=== PATIENT | female | born 1995 | race Two or more races ===

== ENCOUNTER 2024-04-06 20:00 | Inpatient (IN) | payer OTHER ==
[~2024-04-06] VITALS: Ht 157.5 cm; Wt 78.1 kg
--- NOTE | 2024-04-06 20:15 | ED.PDOC ---
HPI Comments 28-year-old female who came to ER for chest pains. Patient states she has been experiencing left sided chest pain since 12 noon today. Chest pains for aching, intermittent, associated with nausea and shortness of breath. As of 3:00 p.m., noted worsening of chest pains, radiating towards her left arm, felt like her arm was numb. Patient admits that she has stress recently. Chief Complaint: Chest pain Time Seen by MD: 20:15 Reviewed Notes: Nurses Notes Allergies: Coded Allergies: Shellfish Allergy (Verified Allergy, Unknown, 04/06/24) Information Source: Patient Mode of Arrival: Ambulatory Severity: Moderate Timing: Hours Duration: Since onset Prehospital treatment: None Location: Chest (L) Radiation: Arm (L) Quality: Aching Onset: At Rest Cardiac Risk Factors: None PE Risk Factors: None History of: None Associated Signs and Symptoms: SOB Past Medical History PAST MEDICAL HISTORY: Asthma Surgical History: Appendectomy Surgical History (Other): Resection of left breast mass 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 Family History Family History: Reviewed,noncontributory to illness Social History Smoker: Non-Smoker Alcohol: Denies ETOH Use Drugs: Denies Drug Use Lives In: Home Constitutional: denies: chills, diaphoresis, fatigue, fever, malaise, sweats, weakness, others EENTM: denies: blurred vision, double vision, ear bleeding, ear discharge, ear drainage, ear pain, ear ringing, eye pain, eye redness, hearing loss, mouth pain, mouth swelling, nasal discharge, nose bleeding, nose congestion, nose pain, photophobia, tearing, throat pain, throat swelling, voice changes, others Respiratory: reports: SOB at rest; denies: cough, hemoptysis, orthopnea, shortness of breath, SOB with excertion, stridor, wheezing, others Cardiovascular: reports: chest pain, left arm pain; denies: dizzy spells, diaphoresis, Dyspnea on exertion, edema, irregular heart beat, lightheadedness, palpitations, PND, syncope, others Gastrointestinal: reports: nausea; denies: abdomen distended, abdominal pain, blood streaked bowels, constipated, diarrhea, dysphagia, difficulty swallowing, hematemesis, melena, poor appetite, poor fluid intake, rectal bleeding, rectal pain, vomiting, others Genitourinary: denies: abnormal vagina bleeding, burning, dyspareunia, dysuria, flank pain, frequency, hematuria, incontinence, pain, , vagina discharge, urgency, others Neurological: denies: dizziness, fainting, headache, left sided numbness, left sided weakness, numbness, paresthesia, pre-existing deficit, right sided numbness, right sided weakness, seizure, speech problems, tingling, tremors, weakness, others Musculoskeletal: denies: back pain, gout, joint pain, joint swelling, muscle pain, muscle stiffness, neck pain, others Integumetry: denies: bruises, change in color, change in hair/nails, dryness, laceration, lesions, lumps, rash, wounds, others Allergic/Immunocompromised: denies: Difficulty Healing, Frequent Infections, Hives, Itching, others Hematologic/Lymphatic: denies: anemia, blood clots, easy bleeding, easy bruising, swollen glands, others Endocrine: denies: excessive hunger, excessive sweating, excessive thirst, excessive urination, flushing, intolerance to cold, intolerance to heat, unexplained weight gain, unexplained weight loss, others Psychiatric: denies: anxiety, bipolar disorder, depression, hopeless, panic disorder, schizophrenia, sleepless, suicidal, others Physical Exam General Appearance: No Apparent Distress, Normal HEENT: Normal ENT Inspection, Pharynx Normal, TMs Normal Neck: Full Range of Motion, Non-Tender, Normal, Normal Inspection Respiratory: Chest Non-Tender, Lungs Clear, No Accessory Muscle Use, No Respiratory Distress, Normal Breath Sounds Cardiovascular: No Edema, No JVD, No Murmur, No Gallop, Normal Peripheral Pulses, Regular Rate/Rhythm Breast Exam: Deferred Gastrointestinal: No Organomegaly, Non Tender, No Pulsatile Mass, Normal Bowel Sounds, Soft Genitalia: Deferred Pelvic: Deferred Rectal: Deferred Extremities: No calf tenderness, Normal capillary refill, Normal inspection, Normal range of motion, Non-tender, No pedal edema Musculoskeletal : Apperance: Normal Neurologic: Alert, charge coordinator II-XII nml as Tested, No Motor Deficits, Normal Affect, Normal Mood, No Sensory Deficits Cerebellar Function: Normal Reflexes: Normal Skin: Dry, Normal Color, Warm Lymphatic: No Adenopathy Was a procedure done? Was a procedure done?: No CP Differential Dx Differential Diagnosis: Angina, Anxiety / Panic Attack, Hyperventilation Differential Diagnosis: Angina, Chest Wall Pain, Costochondritis, Esophageal reflux/spasm, Gastritis, Myocardial Infarction X-Ray, Labs, Meds, VS Vital Signs Date Time Temp Pulse Resp B/P (MAP) Pulse Ox O2 Delivery O2 Flow Rate FiO2 04/06/24 21:03 80 18 97 Room Air* 0 21 04/06/24 21:03 98.7 80 18 131/78 (95) 97 98.7 04/06/24 20:08 98.7 80 18 131/78 (95) 97 04/06/24 20:06 93 Lab Test 04/06/24 21:12 04/06/24 20:10 04/06/24 20:09 04/06/24 20:07 Range/Units Troponin I High Sensitivity 3 L < 3 L </=34 ng/L White Blood Count 6.8 4.4-10.8 10^3/uL Red Blood Count 4.18 4.0-5.20 10^6/uL Hemoglobin 14.2 12.2-16.2 g/dL Hematocrit 39.9 36.0-46.0 % Mean Corpuscular Volume 95.4 80.0-100.0 fL Mean Corpuscular Hemoglobin 33.9 H 28.0-32.0 pg Mean Corpuscular Hemoglobin Concent 35.5 32.0-36.0 g/dL Red Cell Distribution Width 13.3 11.8-14.3 % Platelet Count 311 140-450 10^3/uL Mean Platelet Volume 7.3 6.9-10.8 fL Neutrophils (%) (Auto) 70.1 37.0-80.0 % Lymphocytes (%) (Auto) 24.6 10.0-50.0 % Monocytes (%) (Auto) 4.4 0.0-12.0 % Eosinophils (%) (Auto) 0.3 0.0-7.0 % Basophils (%) (Auto) 0.6 0.0-2.0 % Neutrophils # (Auto) 4.8 1.6-8.6 10 ^3/uL Lymphocytes # (Auto) 1.7 0.4-5.4 10 ^3/uL Monocytes # (Auto) 0.3 0-1.3 10 ^3/uL Eosinophils # (Auto) 0 0-0.8 10 ^3/uL Basophils # (Auto) 0 0-0.2 10 ^3/uL Nucleated Red Blood Cells 0.1 % Sodium Level 140 136-145 mmol/L Potassium Level 3.3 L 3.5-5.1 mmol/L Chloride Level 106 98-107 mmol/L Carbon Dioxide Level 21 20-31 mmol/L Anion Gap 13 5-15 Blood Urea Nitrogen 16 9-23 mg/dL Creatinine 0.84 0.550-1.02 mg/dL Glomerular Filtration Rate Calc 98 >90 mL/min BUN/Creatinine Ratio 19.0 10.0-20.0 Serum Glucose 87 74-106 mg/dL Calcium Level 10.4 8.7-10.4 mg/dL Urine Test Negative Negative Urine Color Yellow Yellow Urine Clarity Clear Clear Urine pH 5.0 5.0-9.0 Urine Specific [place] 1.029 1.001-1.035 Urine Protein Negative Negative Urine Ketones 3+ H Negative Urine Blood Trace H Negative /uL Urine Nitrite Negative Negative Urine Bilirubin Negative Negative Urine Urobilinogen Normal Negative mg/dL Urine Leukocyte Esterase Negative Negative /uL Urine RBC 2 0 - 4 /hpf Urine WBC 2 0 - 5 /hpf Urine Squamous Epithelial Cells Few <5 /hpf Urine Bacteria Few H None Seen /hpf Urine Mucus Few None Seen Urine Glucose Normal Normal mg/dL Current Medications Medications (Trade) Dose Ordered Sig/Bernadette Route Start Time Stop Time Status Last Admin Ondansetron HCl (Zofran Po) 4 mg ONCE ONCE PO 04/06/24 21:30 04/06/24 21:31 DC 04/06/24 21:31 Ketorolac Tromethamine (Toradol Injection) 30 mg ONCE ONCE IV 04/06/24 22:00 04/06/24 22:01 DC 04/06/24 22:04 Ondansetron HCl (Zofran) 4 mg ONCE ONCE IV 04/06/24 22:00 04/06/24 22:01 DC 04/06/24 22:05 Sodium Chloride 1,000 ml @ 1,000 mls/hr Q1H ONCE IV 04/06/24 22:00 04/06/24 22:59 04/06/24 22:05 Time of 1ST Reevaluation: 20:11 Reevaluation 1ST: Unchanged Patient Education/Counseling: Diagnosis, Treatment Family Education/Counseling: No Family Present Departure 1 Departure Time of Disposition: 22:46 (Patient presented with chest pain that was concerning for possible STEMI, ACS, PE, Pneumonia, Muscle Strain, COPD, Disse ction. Data: 1. I ordered and reviewed the result of at least 3 labs including a CBC, BMP, and Troponin. 2. I independently interpreted the following tests: EKG which shows normal sinus rhythm and Chest X-ray which shows benign chest.Risk:This patient has a high risk of morbidity due to further diagnostic testing or treatment and may suffer from an acute cardiac or respiratory diso rder. Workup reveals intractable chest pain and concern for ACS and patient should be admitted for further workup and possible expert consultation. ) Impression: Primary Impression: Acute chest pain Additional Impression: Nausea and vomiting Qualified Codes: R11.12 - Projectile vomiting Disposition: ADMITTED INPATIENT Admit to: Med Surg Condition: Serious Critical Care Note Critical Care Time?: Yes Critical care comment: Acute chest pain Authorized and Performed by: Benja Whitney MD Total critical care time: Approximately 31 minutes Due to a high probability of clinically significant, life threatening deterioration, the patient required my highest level of preparedness to intervene emergently and I personally spent this critical care time directly and personally managing the patient. This critical care time included obtaining a history; examining the patient; pulse oximetry; ordering and review of studies; arranging urgent treatment with development of a management plan; evaluation of patient's response to treatment; frequent reassessment; and, discussions with other providers. This critical care time was performed to assess and manage the high probability of imminent, life-threatening deterioration that could result in multi-organ failure. It was exclusive of separately billable procedures and treating other patients and teaching time. Please see my other sections and the rest of the note for further information on patient assessment and treatment. Stability Stability form required: No Heart Score Heart Score: Heart Score Response (Comments) Value History Slightly Suspicious 0 EKG Normal 0 Age <45 0 Risk Factors No known risk factors 0 Troponin Normal limit 0 Total 0 I personally scribed for BENJA WHITNEY MD ([email or web address]) on 04/06/24 at 20:15. Electronically submitted by Alvin Lutz ([email or web address]). BENJA WHITNEY MD Apr 06, 2024 20:15
[2024-04-06 20:26] LABS: Basophils # (auto) 0 10 ^3/uL (0-0.2); Basophils % (auto) 0.6 % (0.0-2.0); Eosinophils # (auto) 0 10 ^3/uL (0-0.8); Eosinophils % (auto) 0.3 % (0.0-7.0); Hematocrit 39.9 % (36.0-46.0); Hemoglobin 14.2 g/dL (12.2-16.2); Lymphocytes # (auto) 1.7 10 ^3/uL (0.4-5.4); Lymphocytes % (auto) 24.6 % (10.0-50.0); Mean Corpuscular Hemoglobin 33.9 pg (28.0-32.0); Mean Corpuscular Hgb Conc. 35.5 g/dL (32.0-36.0); Mean Corpuscular Volume 95.4 fL (80.0-100.0); Monocytes # (auto) 0.3 10 ^3/uL (0-1.3); Monocytes % (auto) 4.4 % (0.0-12.0); Neutrophils # (auto) 4.8 10 ^3/uL (1.6-8.6); Neutrophils % (auto) 70.1 % (37.0-80.0); Nucleated Red Blood Cells % 0.1 %; Platelet Count (auto) 311 10^3/uL (140-450); Red Blood Cells 4.18 10^6/uL (4.0-5.20); Red Cell Distribution Width 13.3 % (11.8-14.3); White Blood Cell 6.8 10^3/uL (4.4-10.8)
[2024-04-06 21:03] VITALS: PULSE 80; RESP 18; O2SAT 97
[2024-04-06 21:26] LABS: Urine Bacteria FEW /hpf (None Seen); Urine Blood TRACE /uL (Negative); Urine Clarity Clear (Clear); Urine Color Yellow (Yellow); Urine Mucus FEW (None Seen); Urine Protein, UAD Negative (Negative); Urine Specific Gravity 1.029 (1.001-1.035); Urine Urobilinogen Normal (Negative); Urine WBC 2 /hpf (0 - 5)
[2024-04-06] MEDS: ONDANSETRON ODT 4 MG TAB PO ONE (21:31)
[2024-04-06 21:42] LABS: Chloride 106 mmol/L (98-107); Sodium 140 mmol/L (136-145)
[2024-04-06 21:43] LABS: Anion Gap 13 (5-15); Calcium 10.4 mg/dL (8.7-10.4); Carbon Dioxide 21 mmol/L (20-31)
[2024-04-06 21:48] LABS: Blood Urea Nitrogen 16 mg/dL (9-23); Glucose 87 mg/dL (74-106)
[2024-04-06 21:49] LABS: Potassium 3.3 mmol/L (3.5-5.1)
--- NOTE | 2024-04-06 21:56 | DVH ---
EXAM: XY CHEST TWO VIEWS ROUTINE TECHNIQUE: Two radiographic views of the chest CLINICAL HISTORY: chest pain COMPARISON: None Findings/Impression: Frontal and lateral chest radiographs demonstrate no acute osseous or superficial soft tissue abnorma lities. The trachea is midline. The cardiac silhouette and mediastinum are within normal limits. No pneumothorax, pleural effusions, or consolidations.
[2024-04-06] MEDS: KETOROLAC TROMETH 30 MG/ML 1ML VIAL IV ONE (22:04)
[2024-04-06] MEDS: SODIUM CHLORIDE 0.9% 1,000 ML IV ONE (22:05)
[2024-04-06] MEDS: ONDANSETRON HCL 4 MG/2 ML VIAL IV ONE (22:05)
[2024-04-06] MEDS ORDERED: MORPHINE SULFATE INJ 2 MG/ml SYRG IV PRN ×2 (23:00)
[2024-04-06] MEDS ORDERED: NITROGLYCERIN 0.4 MG SL TAB SL PRN (23:00)
[2024-04-06] MEDS ORDERED: DOCUSATE SOD 100 MG CAP PO PRN (23:00)
[2024-04-06] MEDS: POTASSIUM CHL 20 Meq TABLET PO ONE (23:35)
[2024-04-07] VITALS (8 sets, daily range): BP systolic 95–120; BP diastolic 40–60; PULSE 63–86; RESP 15–19; TEMP 97.8–98.5; O2SAT 97–99
--- NOTE | 2024-04-07 00:35 | DVHHPRES ---
History of Present Illness Resident Creating Document: JESUS CAMPBELL RESIDENT History of Present Illness Patient is a 28 years old female with past medical history of asthma came with a complaint of chest pain. As per patient chest pain started around noon, central in nature, pressure-like, 8/10 in severity, radiating to the left arm, the left arm feeling of numbness, pain increased with breathing and walking, Decreased with rest. Also reported associated shortness of breath and palpitation associated with chest pain. Patient reported that she feels sharp pain when breathing in. Patient also endorsed some headache pressure-like, 9/10, no aggravating or relieving factor. Denied any cough, fever, diarrhea, abdominal pain, constipation, acute joint pain or swelling, dysarthria, change in vision. Lab workup revealed hypokalemia potassium 3.3 other lab workup including troponin I was nonsignificant. EKG revealed normal sinus rhythm, ST elevation. D-dimer 0.19. Past Medical History Asthma, migraine Family History Father had NC, Past Social History Patient denies smoking/alcoholism/drug abuse, lives at home with mom Review of Systems Review of Systems Allergy-shellfish Patient was seen today at the bedside. Respiratory- denies cough or or wheezing Gastrointestinal- denies any rectal bleeding, nausea or vomiting Musculoskeletal-denies acute joint swelling or tenderness or redness Neurological- denies acute dysarthria, dysphagia, change in vision Psychiatry- denies depression or SI or HI Skin- denies acute rash or purpura Allergies: Coded Allergies: Shellfish Allergy (Verified Allergy, Unknown, 04/06/24) Medications Current Medications Medications Dose Ordered Sig/Bernadette Route Start Time Stop Time Status Last Admin Dose Admin Docusate Sodium 100 mg BIDPRN PRN PO 04/06/24 23:00 Acetaminophen 650 mg Q6HP PRN PO 04/06/24 23:00 Morphine Sulfate 2 mg Q4HPRN PRN IV 04/06/24 23:00 Nitroglycerin 0.4 mg Q5MINP PRN SL 04/06/24 23:00 Morphine Sulfate 2 mg Q30M PRN IV 04/06/24 23:00 Exam Vital Signs Vital Signs Date Time Temp Pulse Resp B/P (MAP) Pulse Ox O2 Delivery O2 Flow Rate FiO2 04/06/24 23:26 73 04/06/24 21:03 18 97 Room Air* 0 21 04/06/24 21:03 98.7 131/78 (95) 98.7 Exam General examination- awake, alert, oriented, conversant HEENT- PEERLA, no acute nasal discharge Cardiovascular- S1-S2 audible, rate and rhythm regular, no murmur Respiratory- CTAB, no wheeze or rhonchi Gastrointestinal-nontender, bowel sound+. Nondistended Musculoskeletal-no acute joint swelling or tenderness or redness# Lower extremity- no leg edema Neurological- cranial nerves intact, no acute dysarthria or dysphagia Psychiatry- denies depression or SI or HI Skin- no acute rash or purpura Labs/Xrays Labs Test 04/07/24 00:09 04/06/24 22:56 04/06/24 20:10 04/06/24 20:09 Range/Units D-Dimer, Quantitative < 0.19 0.0-0.49 mg/L FEU Troponin I High Sensitivity < 3 L </=34 ng/L Thyroid Stimulating Hormone (TSH) 0.44 L 0.55-4.78 uIU/mL White Blood Count 6.8 4.4-10.8 10^3/uL Red Blood Count 4.18 4.0-5.20 10^6/uL Hemoglobin 14.2 12.2-16.2 g/dL Hematocrit 39.9 36.0-46.0 % Mean Corpuscular Volume 95.4 80.0-100.0 fL Mean Corpuscular Hemoglobin 33.9 H 28.0-32.0 pg Mean Corpuscular Hemoglobin Concent 35.5 32.0-36.0 g/dL Red Cell Distribution Width 13.3 11.8-14.3 % Platelet Count 311 140-450 10^3/uL Mean Platelet Volume 7.3 6.9-10.8 fL Neutrophils (%) (Auto) 70.1 37.0-80.0 % Lymphocytes (%) (Auto) 24.6 10.0-50.0 % Monocytes (%) (Auto) 4.4 0.0-12.0 % Eosinophils (%) (Auto) 0.3 0.0-7.0 % Basophils (%) (Auto) 0.6 0.0-2.0 % Neutrophils # (Auto) 4.8 1.6-8.6 10 ^3/uL Lymphocytes # (Auto) 1.7 0.4-5.4 10 ^3/uL Monocytes # (Auto) 0.3 0-1.3 10 ^3/uL Eosinophils # (Auto) 0 0-0.8 10 ^3/uL Basophils # (Auto) 0 0-0.2 10 ^3/uL Nucleated Red Blood Cells 0.1 % Urine Test Negative Negative Test 04/06/24 20:07 Range/Units Urine Color Yellow Yellow Urine Clarity Clear Clear Urine pH 5.0 5.0-9.0 Urine Specific [place] 1.029 1.001-1.035 Urine Protein Negative Negative Urine Ketones 3+ H Negative Urine Blood Trace H Negative /uL Urine Nitrite Negative Negative Urine Bilirubin Negative Negative Urine Urobilinogen Normal Negative mg/dL Urine Leukocyte Esterase Negative Negative /uL Urine RBC 2 0 - 4 /hpf Urine WBC 2 0 - 5 /hpf Urine Squamous Epithelial Cells Few <5 /hpf Urine Bacteria Few H None Seen /hpf Urine Mucus Few None Seen Urine Glucose Normal Normal mg/dL Assessment/Plan Assessment/Plan #Acute chest pain likely due to pericarditis/musculoskeletal -rule out ACS -EKG- sinus rhythm, no ST elevation -Troponin I nonsignificant -pending echo 2D -continue aspirin 81 mg daily # suspected pericarditis/Musculoskeletal -EKG with a sinus rhythm, no ST elevation -Troponin I nonsignificant -pending echo 2D # hypokalemia -potassium 3.3 -replenished #Bronchial asthma -no acute exacerbation -follow up outpatient Goals of care/advance care planning; FULL CODE; discussed with the patient >15 minutes PUD prophylaxis: DVT prophylaxis: Patient ambulating Plan discussed with Dr. Cazares, nursing staff, patient Total time spent on patient evaluation, chart review, assessment and plan, discussion discussion >30 minutes Plan discussed with: Patient Plan discussed with: Patient, Other (RN) My Orders Orders - JESUS CAMPBELL RESIDENT Procedure Category Date Status Time Admit ADMIT 04/06/24 Transmitted 22:55 Code Status CODE 04/06/24 Transmitted 22:55 Docusate Sodium PHA 04/06/24 In Process Capsule (Colace 23:00 Complete Blood Count LAB 04/07/24 Logged 04:00 Comprehensive LAB 04/07/24 Logged Metabolic Panel 04:00 Cardiac DIET 04/07/24 Transmitted Diet-2gna,Lofat,Lochol Breakfast Echo 2d Mode Cardiac US 04/06/24 Logged DOP 22:55 Acetaminophen Tablet PHA 04/06/24 In Process (Tylenol Tablet) 23:00 Morphine Sulfate PHA 04/06/24 In Process Injection 23:00 Nitroglycerin PHA 04/06/24 In Process Sublingual (Ntrostat 23:00 Morphine Sulfate PHA 04/06/24 In Process Injection 23:00 Oxygen By Nasal RT 04/06/24 Transmitted Cannula 22:55 Stat Ekg For Chest YORDY 04/06/24 In Process Pain 22:55 Notify Md Of Changes YORDY 04/06/24 In Process From Base 22:55 Glaze Sprayer For [facility] 04/06/24 In Process 24 Hours 22:55 Emergency Dysrhythmia [facility] 04/06/24 In Process Protocol 22:55 Rhythm Strips Once YORDY 04/06/24 In Process Every Shift 22:55 Magnesium LAB 04/06/24 In Process 23:06 Comprehensive LAB 04/06/24 In Process Metabolic Panel 23:06 Date of Service: Apr 06, 2024 Billing Provider: ISAEL CAZARES MD Common Visit Codes: [id number] INP/OBS CARE (HIGH) JESUS CAMPBELL RESIDENT Apr 07, 2024 00:35 ISAEL CAZARES MD Apr 09, 2024 12:08
[2024-04-07] MEDS: ASPirin 81 mg TAB PO ONE (01:10)
[2024-04-07 01:18] LABS: Alanine Aminotransferase 25 U/L (7-40); Albumin 4.8 g/dL (3.2-4.8); Alkaline Phosphatase 68 U/L (46-116); Anion Gap 11 (5-15); Aspartate Aminotransferase 15 U/L (13-40); BUN/Creatinine Ratio 21.1 (10.0-20.0); Blood Urea Nitrogen 15 mg/dL (9-23); Carbon Dioxide 21 mmol/L (20-31); Chloride 107 mmol/L (98-107); Glucose 78 mg/dL (74-106); Magnesium 2.2 mg/dL (1.6-2.6); Potassium 4.1 mmol/L (3.5-5.1); Sodium 139 mmol/L (136-145)
[2024-04-07 01:19] LABS: Bilirubin, Total 1.1 mg/dL (0.2-1.0); Total Protein 7.2 g/dL (5.7-8.2)
[2024-04-07] MEDS ORDERED: LORazepam 0.5 MG TAB PO PRN (04:00)
[2024-04-07 04:30] LABS: Amphetamine Screen, Urine Neg (NEGATIVE); Barbiturate Scree,Urine Neg (NEGATIVE); Benzodiazephine Screen, Urine Neg (NEGATIVE); Cocaine Screen, Urine Neg (NEGATIVE); Opiate Scree,Urine Neg (NEGATIVE)
[2024-04-07 04:31] LABS: Cannabinoid Screen, Urine Neg (NEGATIVE); Phencyclidine Screen, Urine Neg (NEGATIVE)
[2024-04-07] MEDS: PANTOPRAZOLE 40 MG TAB PO SCH (07:00)
[2024-04-07 07:30] LABS: Basophils # (auto) 0 10 ^3/uL (0-0.2); Basophils % (auto) 0.5 % (0.0-2.0); Eosinophils # (auto) 0.1 10 ^3/uL (0-0.8); Lymphocytes # (auto) 1.5 10 ^3/uL (0.4-5.4); Monocytes # (auto) 0.3 10 ^3/uL (0-1.3)
[2024-04-07 07:32] LABS: Eosinophils % (auto) 1.4 % (0.0-7.0); Hemoglobin 12.8 g/dL (12.2-16.2); Lymphocytes % (auto) 35.7 % (10.0-50.0); Mean Corpuscular Hemoglobin 34.4 pg (28.0-32.0); Mean Corpuscular Hgb Conc. 35.5 g/dL (32.0-36.0); Mean Corpuscular Volume 96.8 fL (80.0-100.0); Monocytes % (auto) 6.3 % (0.0-12.0); Neutrophils # (auto) 2.4 10 ^3/uL (1.6-8.6); Neutrophils % (auto) 56.1 % (37.0-80.0); Nucleated Red Blood Cells % 0.1 %; Platelet Count (auto) 277 10^3/uL (140-450); Red Blood Cells 3.72 10^6/uL (4.0-5.20); Red Cell Distribution Width 13.5 % (11.8-14.3); White Blood Cell 4.3 10^3/uL (4.4-10.8)
[2024-04-07 07:38] LABS: Alanine Aminotransferase 23 U/L (7-40); Albumin 4.4 g/dL (3.2-4.8); Alkaline Phosphatase 63 U/L (46-116); Anion Gap 9 (5-15); BUN/Creatinine Ratio 17.9 (10.0-20.0); Bilirubin, Total 0.7 mg/dL (0.2-1.0); Blood Urea Nitrogen 14 mg/dL (9-23); Calcium 9.7 mg/dL (8.7-10.4); Carbon Dioxide 23 mmol/L (20-31); Chloride 110 mmol/L (98-107); Free T3 3.41 pg/mL (2.3-4.2); Free T4 (Free Thyroxine) 1.16 ng/dL (0.89-1.76); Glucose 82 mg/dL (74-106); Potassium 3.9 mmol/L (3.5-5.1); Sodium 142 mmol/L (136-145); Total Protein 6.7 g/dL (5.7-8.2)
[2024-04-07 07:39] LABS: Aspartate Aminotransferase 11 U/L (13-40)
[2024-04-07 09:39] LABS: Erythrocyte Sedimentation Rate 22 mm/hr (0-20)
[2024-04-07 12:49] LABS: COVID19 ANTIGEN SOFIA FIA NEGATIVE (NEGATIVE)
[2024-04-07 12:57] LABS: Rapid Influenza A Negative (Negative); Rapid Influenza B Negative (Negative)
[2024-04-07] MEDS: ACETAMINOPHEN 325 MG TAB PO PRN (19:54)
--- NOTE | 2024-04-07 20:38 | DVHPNRES ---
Progress Note Date Seen: Apr 07, 2024 Resident Creating Document: ROSAMARIA FLORES RESIDENT Medical Necessity Reason Pt with a Central, PICC or Fol: No Medical Necessity Reason chest pain family history of AMI at age 35 Subjective Review of Systems This a 28-year-old female with a past medical history significant for asthma presented to the ED with a complaints of chest pain. According to the patient, the chest pain started around noon yesterday. Pain was localized substernally and felt like pressures being applied and rated 8/10 with radiation to the left arm. it was associated with numbness, shortness of breath and palpitation. The pain increased with breathing and walking, but improved with rest. Patient also complained of headache that felt like pressure in her head or sometimes felt like a tight band around her head. She denied any cough, fever, diarrhea, abdominal pain, constipation, acute joint pain or swelling, dysarthria, change in vision. Initials vitals were grossly unremarkable and lab workup showed K: 3.3, troponin < 3 ( 3x). EKG revealed normal sinus rhythm, and no ST elevation. D-dimer 0.19. Covid: Negative Constitutional: Denies fever no chills no feeling of malaise HEENT: Headache localized in her scalp; ear pain, ear discharges, conjunctivitis, nasal discharge throat pain Cardiovascular: Improved chest pain 4/10; no palpitation, orthopnea, PND, or pedal edema Respiratory: Denies shortness of breath, cough cough, sputum production, hemoptysis, GI: Denies abdominal pain, nausea, vomiting, diarrhea, hematemesis, hematochezia, : Denies frequency, urgency, hematuria, Endocrine: Denies unintentional weight gain or weight loss, feeling of hot flashes, Chuck: Denies easy bruising, bleeding disorders, epistaxis Musculoskeletal: Denies joint pains, muscle aches Psych: No evidence of depression, ruth, suicidal ideation Past Medical History: Asthma, migraine Family History: Father had AL ( 2X) at age 35 and had a stent Past Social History: in divorce proceedings currently, no alcoholism/drug abuse, lives at home with mom Objective vital signs Vital Sign Date Time Temp Pulse Resp B/P (MAP) Pulse Ox O2 Delivery O2 Flow Rate FiO2 04/07/24 17:00 98.5 79 19 120/57 (78) 98 98.5 04/07/24 16:33 Room Air* 0 21 Total Intake and Output 04/06/24 04/06/24 04/07/24 15:00 23:00 07:00 Intake Total 1000 ml Balance 1000 ml medications Current Medications Medications Dose Ordered Sig/Bernadette Route Start Time Stop Time Status Last Admin Dose Admin Docusate Sodium 100 mg BIDPRN PRN PO 04/06/24 23:00 Acetaminophen 650 mg Q6HP PRN PO 04/06/24 23:00 04/07/24 19:54 650 MG Morphine Sulfate 2 mg Q4HPRN PRN IV 04/06/24 23:00 Nitroglycerin 0.4 mg Q5MINP PRN SL 04/06/24 23:00 Morphine Sulfate 2 mg Q30M PRN IV 04/06/24 23:00 Lorazepam 0.5 mg Q6HP PRN PO 04/07/24 04:00 Pantoprazole Sodium 40 mg DAILY@0600 PO 04/07/24 06:15 04/07/24 07:00 40 MG Examination General examination- Not in acute distress HEENT: PEERLA, no acute nasal discharge Chest: S1-S2 audible, rate and rhythm regular, no murmur Lung: CTAB, no wheeze or rhonchi Abdomen: Nondistended, BS+, nontender, no organomegaly Musculoskeletal: no acute joint swelling or tenderness Lower extremity: no leg edema Neurological: cranial nerves intact, no acute dysarthria or dysphagia Psychiatry-- Normal mood and affect Skin- no acute rash or purpura laboratory and microbiology Laboratory Tests 04/07/24 06:22 Test 04/07/24 06:22 Range/Units Serum Glucose 82 74-106 mg/dL Labs and/or images reviewed: Labs reviewed by me, Image(s) reviewed by me Problem List/Assessment/Plan Problem List/Assessment/Plan Chest pain rule out ACS --> Troponin < 3 ( 3x) --> EKG: no ST changes appreciated --> Aspirin --> Nitroglycerin --> Chest: no cardiopulmonary abnormality appreciated --> Get Echo: Pending report. If normal, discharge patient. if abnormal, consult cardiology. Family history of AMI ( 2x) at an early age --> father Lipid panel--> Pending Migraine --> Tylenol PRN Asthma --> no exacerbation at this time --> Monitor Mild hypokalemia-->IMPROVED -->K: 3.3 --> corrected Code status: Full Goal of care discussed for 20 minutes Case and plan discussed with Dr. Reese Plan discussed with: Patient, Other (Nurse) Addendum Addendum Addendum I was physically present for the leon portions of the service provided to patient by THE RESIDENT. I have reviewed the documentation, discussed the case with resident and agree with the resident's documentation except as noted. Also the patient's clinical case was discussed with the patient's nurse. This medical document was created using an electronic medical record system with computerized dictation system. Although this document has been carefully reviewed, there might still be some phonetic and typographical errors. These areas are purely typographical due to imperfections of the software programs, and do not reflect any compromise in the patient's medical care. Late signature. Date of Service: Apr 07, 2024 Billing Provider: NANCI REESE MD Common Visit Codes: [id number] INP/OBS CARE(HIGH) Secondary Visit Codes: [id number] CARE PLAN 30 MINUTES (20 minutes) ROSAMARIA FLORES RESIDENT Apr 07, 2024 20:38 NANCI REESE MD Apr 09, 2024 10:13
--- NOTE | 2024-04-07 21:17 | DVHSR ---
APPROVED REPORT EXAM: Two-dimensional and M-mode echocardiogram with Doppler and color Doppler. Blood Pressure: 95/40 mmHg INDICATION Chest Pain RISK FACTORS Height: 5'2, DIMENSIONS LVDd4.9 (3.8-5.7cm)LA (2D)3.3 (1.9-4.0cm)Aortic Root3.0 (2.0-3.7cm) LVDs3.0 (2.5-4.0cm)LA (MM) (1.9-4.0cm)Aortic Cusp Exc1.9 (1.5-2.0cm) EF (%) 65.0 (55-70%)Rt. Atrium3.5 (1.9-4.0cm)Asc. Aorta2.9 cm IVSd0.7 (0.7-1.1cm)RV (D) (1.8-2.4cm) PWd0.6 (0.7-1.1cm) Mitral Valve MitralMitral Stenosis E wave1.06m/sMV Mean GR.mmHg A wave0.62m/sMV Peak GR.mmHg E/A ratio1.72D MVAcm2 DECEL [id number] 1/2 Timems Aortic Valve Aortic ValveAortic Stenosis V11.27m/Divine Mean GR.5mmHg V21.59m/Divine Peak GR.10mmHg LVOT Diameter1.9 (1.8-2.4cm)Doppler AVA2.26cm2 Pulmonic Valve V21.27m/s Tricuspid Valve TR Velocity1.89m/s [id number] Conclusion Normal left ventricular size and dimension. Normal left ventricular systolic function estimated ejec tion fraction of 60%. There is a grade 1 diastolic dysfunction. Normal right ventricular size and dimension. Normal right ventricular systolic function. Normal biatrial size and dimension. Normal aortic valve structure and function. Normal mitral valve structure and function. Normal tricuspid valve structure and function. The pulmonary valve is grossly normal. No pericardial effusion.
[2024-04-08] VITALS (8 sets, daily range): BP systolic 90–116; BP diastolic 48–74; PULSE 48–77; RESP 16–20; TEMP 97.6–98.3; O2SAT 97–100
[2024-04-08 06:49] LABS: Triglycerides 75 mg/dL (< 150)
[2024-04-08 06:50] LABS: Cholesterol 145 mg/dL (< 200)
[2024-04-08 06:53] LABS: HDL Cholesterol 35 mg/dL (40-59); LDL Cholesterol 102 mg/dL (< 100)
[2024-04-08] MEDS ORDERED: ASPirin 81 mg TAB PO SCH (10:00)
--- NOTE | 2024-04-08 16:08 | DVHPNRES ---
Progress Note Date Seen: Apr 08, 2024 Resident Creating Document: LEVI JOSHI RESIDENT Medical Necessity Reason Pt with a Central, PICC or Fol: No Subjective Review of Systems Patient was seen and examined at bedside. She states feeling well, Flovent she does state that her blood pressure drops at night, she also has palpitations, heart rate has been around 40s 50s, she states having fatigue, some dizziness, no chest pain, no shortness a breath. Cardiology has been consulted for symptomatic sinus bradycardia Echocardiogram revealed ejection fraction 60% Objective vital signs Vital Sign Date Time Temp Pulse Resp B/P (MAP) Pulse Ox O2 Delivery O2 Flow Rate FiO2 04/08/24 13:00 98.3 77 18 115/63 (80) 100 98.3 04/07/24 20:00 Room Air* 0 21 Total Intake and Output 04/07/24 04/07/24 04/08/24 15:00 23:00 07:00 Intake Total 0 ml 336 ml Output Total 0 ml Balance 0 ml 336 ml medications Current Medications Medications Dose Ordered Sig/Bernadette Route Start Time Stop Time Status Last Admin Dose Admin Docusate Sodium 100 mg BIDPRN PRN PO 04/06/24 23:00 Acetaminophen 650 mg Q6HP PRN PO 04/06/24 23:00 04/07/24 19:54 650 MG Morphine Sulfate 2 mg Q4HPRN PRN IV 04/06/24 23:00 Nitroglycerin 0.4 mg Q5MINP PRN SL 04/06/24 23:00 Morphine Sulfate 2 mg Q30M PRN IV 04/06/24 23:00 Lorazepam 0.5 mg Q6HP PRN PO 04/07/24 04:00 Pantoprazole Sodium 40 mg DAILY@0600 PO 04/07/24 06:15 04/08/24 05:58 40 MG Examination General: Awake, alert, comfortable appearing, in no acute distress. HEENT: Head is normocephalic and atraumatic. Pupils are equal, round, and reactive to light. Extraocular muscles are intact. No nasal discharge. No facial trauma. Intraoral exam shows moist mucous membranes with no tonsillar enlargement or exudate. Neck: Supple with no cervical lymphadenopathy No meningismus. No goiter. Heart: Regular rate without murmur, rub, or gallop. Lungs: Equal breath sounds bilaterally with no wheezing, rales, or rhonchi. There is no chest wall tenderness or instability. Abdomen: No external sign of injury. Bowel sounds are present. Abdomen is soft, nontender. No rebound, no guarding, no rigidity. There are no palpable masses. There is no flank pain on exam. Extremities: Strong peripheral pulses. There is no clubbing, no cyanosis, and no edema. Skin: No rash. Neurologic: Cranial nerves II-XII intact without motor, sensory, or cerebellar deficit, no asterixis. laboratory and microbiology Laboratory Tests 04/07/24 06:22 Test 04/07/24 06:22 Range/Units Serum Glucose 82 74-106 mg/dL Labs and/or images reviewed: Labs reviewed by me, Image(s) reviewed by me Problem List/Assessment/Plan Problem List/Assessment/Plan Chest pain, ruled out ACS --> Troponin < 3 ( 3x) --> EKG: no ST changes appreciated --> Aspirin --> Nitroglycerin --> Chest: no cardiopulmonary abnormality appreciated --> Get Echo: Revealed ejection fraction of 60%, everything was unremarkable #Symptomatic sinus bradycardia Consulted cardiology Family history of AMI ( 2x) at an early age --> father Mixed dyslipidemia Counseled on lifestyle modifications Migraine --> Tylenol PRN Asthma --> no exacerbation at this time --> Monitor Mild hypokalemia-->IMPROVED -->K: 3.3 --> corrected Case and plan discussed with Dr. Reese Plan discussed with: Patient, Other (RN) My Orders My Orders Orders - LEVI JOSHI RESIDENT Procedure Category Date Status Time Calcium LAB 04/09/24 Verified 04:00 Basic Metabolic Panel LAB 04/09/24 Verified 04:00 Cortisol Am LAB 04/09/24 Verified 08:00 Addendum Addendum Addendum I was physically present for the leon portions of the service provided to patient by THE RESIDENT. I have reviewed the documentation, discussed the case with resident and agree with the resident's documentation except as noted. Also the patient's clinical case was discussed with the patient's nurse. This medical document was created using an electronic medical record system with computerized dictation system. Although this document has been carefully reviewed, there might still be some phonetic and typographical errors. These areas are purely typographical due to imperfections of the software programs, and do not reflect any compromise in the patient's medical care. Late signature. Date of Service: Apr 08, 2024 Billing Provider: NANCI REESE MD Common Visit Codes: [id number] INP/OBS CARE(HIGH) LEVI JOSHI RESIDENT Apr 08, 2024 16:08 NANCI REESE MD Apr 09, 2024 10:14
[2024-04-08] MEDS: SODIUM CHLORIDE 0.9% 1,000 ML IV ONE (17:50)
[2024-04-08] MEDS: HYDROcodone-ACET 5/325MG TAB PO PRN (22:18)
[2024-04-09] VITALS (8 sets, daily range): BP systolic 99–117; BP diastolic 48–67; PULSE 52–92; RESP 16–18; TEMP 97.4–98.3; O2SAT 96–100
--- NOTE | 2024-04-09 05:48 | ECG ---
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
--- NOTE | 2024-04-09 05:48 | ECG ---
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
--- NOTE | 2024-04-09 05:48 | ECG ---
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
[2024-04-09 08:47] LABS: Basophils # (auto) 0 10 ^3/uL (0-0.2); Basophils % (auto) 0.5 % (0.0-2.0); Eosinophils # (auto) 0.1 10 ^3/uL (0-0.8); Eosinophils % (auto) 1.3 % (0.0-7.0); Hematocrit 39.8 % (36.0-46.0); Hemoglobin 13.6 g/dL (12.2-16.2); Lymphocytes # (auto) 1.5 10 ^3/uL (0.4-5.4); Lymphocytes % (auto) 33.4 % (10.0-50.0); Mean Corpuscular Hemoglobin 33.5 pg (28.0-32.0); Mean Corpuscular Hgb Conc. 34.2 g/dL (32.0-36.0); Mean Corpuscular Volume 97.9 fL (80.0-100.0); Monocytes # (auto) 0.2 10 ^3/uL (0-1.3); Monocytes % (auto) 4.5 % (0.0-12.0); Neutrophils # (auto) 2.7 10 ^3/uL (1.6-8.6); Neutrophils % (auto) 60.3 % (37.0-80.0); Platelet Count (auto) 269 10^3/uL (140-450); Red Blood Cells 4.07 10^6/uL (4.0-5.20); Red Cell Distribution Width 13.5 % (11.8-14.3); White Blood Cell 4.5 10^3/uL (4.4-10.8)
[2024-04-09 09:03] LABS: Potassium 4.1 mmol/L (3.5-5.1); Sodium 142 mmol/L (136-145)
[2024-04-09 09:04] LABS: Anion Gap 7 (5-15); Carbon Dioxide 27 mmol/L (20-31)
[2024-04-09 09:05] LABS: Calcium 9.9 mg/dL (8.7-10.4)
[2024-04-09 09:08] LABS: Chloride 108 mmol/L (98-107)
[2024-04-09 09:09] LABS: BUN/Creatinine Ratio 11.1 (10.0-20.0); Glucose 90 mg/dL (74-106)
[2024-04-09 09:34] LABS: Blood Urea Nitrogen 8 mg/dL (9-23)
--- NOTE | 2024-04-09 19:04 | DVHINCON2 ---
Date Seen: Apr 09, 2024 Referring Physician MD Thiago Reason for Consultation Symptomatic sinus bradycardia History of Present Illness This is a 28 y.o. female who presented with a chief complain of chest pain. Describes the chest pain as left-sided, radiating to the left arm as a numb sens ation, pressure like, non-provoked, intermittent, and associated with hot flush sensation while sleeping, HAs, and some dizziness. She underwent three 12-lead electrocardiograms revealing a normal sinus rhythm without discernible ST- segment changes or atrioventricular blocks. Resting heart rate has been found as low as 46 bpm. Serial troponin levels are negative. Of note, the patient notes she has lost about 45 lbrs within the past 18 months. She exercises 5 days/week including cardio and strengthening workouts. She takes pre-workout 3- 4 times/week, drinks a cup of coffee/day, and seldom started drinking energy drinks within the last two months. Significant medical history includes asthma and obesity. Past Medical History Past medical history reviewed. No other significant than mentioned above. Past Surgical History Appendectomy Left breast lumpectomy, benign Family History Family history reviewed. Reports father with history of myocardial infarctions without cardiac interventions. Social History Denies the use of illicit drugs, alcohol, or tobacco use. Allergies: Coded Allergies: Shellfish Allergy (Verified Allergy, Unknown, 04/06/24) Home Meds Home medications reviewed. Current Medications Current Medications Medications (Trade) Dose Ordered Sig/Bernadette Route PRN Reason Start Time Stop Time Status Last Admin Acetaminophen/ Hydrocodone Bitart ([place] 5/325MG Tab) 1 tab Q8HPRN PRN PO MODERATE PAIN (4-6 PAIN SCALE) 04/08/24 22:00 04/08/24 22:18 Review of Systems Constitutional: No symptom reported Ears, Nose, & Throat: No symptom reported Eyes: No symptom reported Neurological: HAs, dizziness Pulmonary/Respiratory: No symptom reported Cardiovascular: Chest pain Gastrointestinal: No symptom reported Genitourinary: No symptom reported Musculoskeletal: No symptom reported Skin: No symptom reported Psychiatric: No symptom reported Endocrine: No symptom reported Hemotologic/Lymphatic: No symptom reported Vital Signs Vital Signs Date Time Temp Pulse Resp B/P (MAP) Pulse Ox O2 Delivery O2 Flow Rate FiO2 04/09/24 17:15 98.3 71 18 116/60 (78) 98 98.3 04/08/24 20:00 Room Air* 0 21 Physical Exam General Appearance: Cooperative. Well developed. Obese. In no acute distress Head Exam: Normal inspection Neck Exam: Normal inspection. Non-tender. Normal alignment Pulmonary/Respiratory: Chest non-tender. Clear bilateral breath sounds Cardiovascular/Chest: Regular rate and rhythm. S1, S2. NSR. No murmurs. No JVD. Peripheral Pulses: 2+ Radial (R). 2+ Radial (L). 2+ Pedal (R). 2+ Pedal (L) Abdominal Exam: Normal bowel sounds. Soft. Nontender. No hepatospenomegaly. No masses Ankle Exam: Negative ankle edema Lower extremities: Negative lower extremity edema Neuro/Mental Status: A&O x4. Coherent Thoughts/Psych: Normal thought pattern. Appropriate mood and affect. Good judgement and insight Appearance: In no acute distress Skin Exam: Normal inspection. Normal color. Warm. Dry Labs/Diagnostic Data Labs Test 04/09/24 08:14 04/08/24 05:27 04/07/24 11:39 04/07/24 06:22 Range/Units White Blood Count 4.5 4.4-10.8 10^3/uL Red Blood Count 4.07 4.0-5.20 10^6/uL Hemoglobin 13.6 12.2-16.2 g/dL Hematocrit 39.8 # 36.0-46.0 % Mean Corpuscular Volume 97.9 80.0-100.0 fL Mean Corpuscular Hemoglobin 33.5 H 28.0-32.0 pg Mean Corpuscular Hemoglobin Concent 34.2 32.0-36.0 g/dL Red Cell Distribution Width 13.5 11.8-14.3 % Platelet Count 269 140-450 10^3/uL Mean Platelet Volume 7.5 6.9-10.8 fL Neutrophils (%) (Auto) 60.3 37.0-80.0 % Lymphocytes (%) (Auto) 33.4 10.0-50.0 % Monocytes (%) (Auto) 4.5 0.0-12.0 % Eosinophils (%) (Auto) 1.3 0.0-7.0 % Basophils (%) (Auto) 0.5 0.0-2.0 % Neutrophils # (Auto) 2.7 1.6-8.6 10 ^3/uL Lymphocytes # (Auto) 1.5 0.4-5.4 10 ^3/uL Monocytes # (Auto) 0.2 0-1.3 10 ^3/uL Eosinophils # (Auto) 0.1 0-0.8 10 ^3/uL Basophils # (Auto) 0 0-0.2 10 ^3/uL Nucleated Red Blood Cells 0.0 % Sodium Level 142 136-145 mmol/L Potassium Level 4.1 3.5-5.1 mmol/L Chloride Level 108 H 98-107 mmol/L Carbon Dioxide Level 27 20-31 mmol/L Anion Gap 7 5-15 Blood Urea Nitrogen 8 L 9-23 mg/dL Creatinine 0.72 0.550-1.02 mg/dL Glomerular Filtration Rate Calc 117 >90 mL/min BUN/Creatinine Ratio 11.1 10.0-20.0 Serum Glucose 90 74-106 mg/dL Calcium Level 9.9 8.7-10.4 mg/dL Cortisol AM Sample 17.30 5.27-22.45 ug/dL Triglycerides Level 75 < 150 mg/dL Cholesterol Level 145 < 200 mg/dL LDL Cholesterol 102 H < 100 mg/dL HDL Cholesterol 35 L 40-59 mg/dL Influenza Type A Antigen Negative Negative Influenza Type B Antigen Negative Negative SARS-CoV-2 Antigen (Rapid) Negative NEGATIVE Erythrocyte Sedimentation Rate 22 H 0-20 mm/hr Hemoglobin A1c 4.7 <5.7 % A1C Total Bilirubin 0.7 0.2-1.0 mg/dL Aspartate Amino Transferase (AST) 11 L 13-40 U/L Alanine Aminotransferase (ALT) 23 7-40 U/L Alkaline Phosphatase 63 46-116 U/L C-Reactive Protein High Sensitivity 0.11 <1.0 mg/dL Total Protein 6.7 5.7-8.2 g/dL Albumin 4.4 3.2-4.8 g/dL Free Thyroxine (T4) Calculated 1.16 0.89-1.76 ng/dL Free Triiodothyronine (T3) pg/mL 3.41 2.3-4.2 pg/mL Test 04/07/24 00:09 04/06/24 22:56 04/06/24 20:09 04/06/24 20:07 Range/Units Magnesium Level 2.2 1.6-2.6 mg/dL D-Dimer, Quantitative < 0.19 0.0-0.49 mg/L FEU Troponin I High Sensitivity < 3 L </=34 ng/L Thyroid Stimulating Hormone (TSH) 0.44 L 0.55-4.78 uIU/mL Urine Test Negative Negative Urine Opiates Screen Neg NEGATIVE Urine Fentanyl Screen Neg NEGATIVE Urine Barbiturates Screen Neg NEGATIVE Urine Phencyclidine Screen Neg NEGATIVE Urine Amphetamines Screen Neg NEGATIVE Urine Benzodiazepines Screen Neg NEGATIVE Urine Cocaine Screen Neg NEGATIVE Urine Cannabinoids Screen Neg NEGATIVE Urine Color Yellow Yellow Urine Clarity Clear Clear Urine pH 5.0 5.0-9.0 Urine Specific [place] 1.029 1.001-1.035 Urine Protein Negative Negative Urine Ketones 3+ H Negative Urine Blood Trace H Negative /uL Urine Nitrite Negative Negative Urine Bilirubin Negative Negative Urine Urobilinogen Normal Negative mg/dL Urine Leukocyte Esterase Negative Negative /uL Urine RBC 2 0 - 4 /hpf Urine WBC 2 0 - 5 /hpf Urine Squamous Epithelial Cells Few <5 /hpf Urine Bacteria Few H None Seen /hpf Urine Mucus Few None Seen Urine Glucose Normal Normal mg/dL Assessment Noncardiac chest pain, likely anxiety Borderline dyslipidemia Hypokalemia Asthma Obesity Plan/Recommendation (Dr. Guidry) Likely noncardiac chest pain mostly secondary to anxiety with classroom monitor revealing a sinus bradycardia at rest without evidence of atrioventricular blocks. Patient will undergo a treadmill stress test to rule out coronary ischemia as well as to undergo a chronotropic response evaluation. She underwent a transthoracic echocardiogram revealing an LVEF of 60%. Monitor ECG changes and notify. Thank you for allowing us to participate in this patient's care. Please call if you have any questions or concerns. This medical document was created using an electronic medical record system with voice recognition software and computerized dictation system. Although this document has been carefully reviewed, there might still be some phonetic and typographical errors. Occasional wrong-word or ``sound-alike substitutions may have occurred due to the inherent limitations of voice recognition software. These areas are purely typographical due to imperfections of the software programs and do not reflect any compromise in the patient's medical care. Brandon gr read the chart carefully and recognize, using context, where these substitutions have occurred. Plan discussed with: Patient, Other Date of Service: Apr 09, 2024 Billing Provider: AARON GUIDRY MD Cardiology Common Codes: [id number] INP/OBS CARE (High) SOFIE EATON [facility] Apr 09, 2024 19:04
--- NOTE | 2024-04-09 21:35 | DVHPNRES ---
Progress Note Date Seen: Apr 09, 2024 Resident Creating Document: ROSAMARIA FLORES RESIDENT Medical Necessity Reason Pt with a Central, PICC or Fol: No Medical Necessity Reason Intermittent chest pain family history of chest pain Subjective Review of Systems Patient was seen and examined at bedside. She states feeling well, however, admits to intermittent chest pain that feels cold with inspiration. She denied any recent flu like illness or palpitation; Her heart rate has been around 40s 50s, she states having fatigue, some dizziness, no chest pain, no shortness a breath. Pending cardiology evaluation for symptomatic sinus bradycardia Echocardiogram revealed ejection fraction 60% Objective vital signs Vital Sign Date Time Temp Pulse Resp B/P (MAP) Pulse Ox O2 Delivery O2 Flow Rate FiO2 04/09/24 17:15 98.3 71 18 116/60 (78) 98 98.3 04/09/24 08:30 Room Air* 0 21 Total Intake and Output 04/08/24 04/08/24 04/09/24 15:00 23:00 07:00 Intake Total 460 ml 1200 ml Balance 460 ml 1200 ml medications Current Medications Medications Dose Ordered Sig/Bernadette Route Start Time Stop Time Status Last Admin Dose Admin Docusate Sodium 100 mg BIDPRN PRN PO 04/06/24 23:00 Acetaminophen 650 mg Q6HP PRN PO 04/06/24 23:00 04/08/24 17:57 650 MG Morphine Sulfate 2 mg Q4HPRN PRN IV 04/06/24 23:00 Nitroglycerin 0.4 mg Q5MINP PRN SL 04/06/24 23:00 Morphine Sulfate 2 mg Q30M PRN IV 04/06/24 23:00 Lorazepam 0.5 mg Q6HP PRN PO 04/07/24 04:00 Pantoprazole Sodium 40 mg DAILY@0600 PO 04/07/24 06:15 04/09/24 05:40 40 MG Acetaminophen/ Hydrocodone Bitart 1 tab Q8HPRN PRN PO 04/08/24 22:00 04/09/24 20:31 1 TAB Examination General: Awake, alert, comfortable appearing, in no acute distress. HEENT: Head is normocephalic and atraumatic. Pupils are equal, round, and reactive to light. Extraocular muscles are intact. No nasal discharge. No facial trauma. Intraoral exam shows moist mucous membranes with no tonsillar enlargement or exudate. Neck: Supple with no cervical lymphadenopathy No meningismus. No goiter. Heart: Regular rate without murmur, rub, or gallop. Lungs: Equal breath sounds bilaterally with no wheezing, rales, or rhonchi. There is no chest wall tenderness or instability. Abdomen: No external sign of injury. Bowel sounds are present. Abdomen is soft, nontender. No rebound, no guarding, no rigidity. There are no palpable masses. There is no flank pain on exam. Extremities: Strong peripheral pulses. There is no clubbing, no cyanosis, and no edema. Skin: No rash. Neurologic: Cranial nerves II-XII intact without motor, sensory, or cerebellar deficit, no asterixis. laboratory and microbiology Laboratory Tests 04/09/24 08:14 Test 04/09/24 08:14 Range/Units Serum Glucose 90 74-106 mg/dL Problem List/Assessment/Plan Problem List/Assessment/Plan Non cardiac Chest pain, ACS ruled out --> Troponin < 3 ( 3x) --> EKG: no ST changes appreciated --> Aspirin --> Nitroglycerin --> Chest: no cardiopulomonary abnormality appreciated --> Cardiology evaluation: Likely noncardiac chest pain mostly secondary to anxiety with rn cardiac revealing a sinus bradycardia at rest without evidence of atrioventricular blocks. Patient will undergo a treadmill stress test to rule out coronary ischemia as well as to undergo a chronotropic response evaluation. Family history of AMI ( 2x) at an early age --> father Lipid panel --> LDL: 102 --> HDL: 35 Migraine --> Tylenol PRN Asthma --> no exacerbation at this time --> Monitor Mild hypokalemia-->IMPROVED -->K: 3.3 --> corrected Code status: Full Goal of care discussed for more than 30 minute Case and plan discussed with Dr. Tijerina Plan discussed with: Patient Date of Service: Apr 09, 2024 Billing Provider: GABRIEL YOUSIF MD Common Visit Codes: [id number] INP/OBS CARE(HIGH) ROSAMARIA FLORES RESIDENT Apr 09, 2024 21:35 GABRIEL YOUSIF MD Apr 11, 2024 10:21
[2024-04-10 00:55] VITALS: BP 105/56; PULSE 67; RESP 17; TEMP 97.8; O2SAT 100
[2024-04-10 05:00] VITALS: BP 96/57; PULSE 56; RESP 18; TEMP 97.6; O2SAT 99
[2024-04-10 08:00] VITALS: PULSE 71; RESP 19; O2SAT 97
[2024-04-10 08:30] VITALS: BP 112/65; PULSE 71; RESP 19; TEMP 97.9; O2SAT 97
[2024-04-10 09:56] VITALS: BP 115/80; PULSE 80; RESP 16
--- NOTE | 2024-04-10 10:05 | DVHPN2 ---
Consult Progress Note Date Seen: Apr 10, 2024 Subjective Review of Systems: CVS:Normal, RESPIRATORY:Normal, NEURO:Abnormal Other Systems: C/o dizziness Objective vital signs Vital Sign Date Time Temp Pulse Resp B/P (MAP) Pulse Ox O2 Delivery O2 Flow Rate FiO2 04/10/24 05:00 97.6 56 18 96/57 (70) 99 97.6 04/09/24 20:00 Room Air* 0 21 Total Intake and Output 04/09/24 04/09/24 04/10/24 15:00 23:00 07:00 Intake Total 920 ml 600 ml Balance 920 ml 600 ml medications Current Medications Medications Dose Ordered Sig/Bernadette Route Start Time Stop Time Status Last Admin Dose Admin Docusate Sodium 100 mg BIDPRN PRN PO 04/06/24 23:00 Acetaminophen 650 mg Q6HP PRN PO 04/06/24 23:00 04/08/24 17:57 650 MG Morphine Sulfate 2 mg Q4HPRN PRN IV 04/06/24 23:00 Nitroglycerin 0.4 mg Q5MINP PRN SL 04/06/24 23:00 Morphine Sulfate 2 mg Q30M PRN IV 04/06/24 23:00 Lorazepam 0.5 mg Q6HP PRN PO 04/07/24 04:00 Pantoprazole Sodium 40 mg DAILY@0600 PO 04/07/24 06:15 04/10/24 05:37 40 MG Acetaminophen/ Hydrocodone Bitart 1 tab Q8HPRN PRN PO 04/08/24 22:00 04/09/24 20:31 1 TAB Examination: LUNGS:Normal, CVS:Normal, NEURO:Normal laboratory and microbiology Laboratory Tests 04/09/24 08:14 Test 04/09/24 08:14 Range/Units Serum Glucose 90 74-106 mg/dL Problem List/Assessment/Plan Problem List/Assessment/Plan Noncardiac chest pain, likely anxiety Borderline dyslipidemia Hypokalemia Asthma Obesity Plan/Recommendation (Dr. Guidry) Likely noncardiac chest pain mostly secondary to anxiety with playground monitor revealing a sinus bradycardia rhythm at rest without evidence of atrioventricular blocks. The patient underwent a non-ischemic treadmill stress test and chronotropic response evaluation with optimal findings, see report. She also underwent a transthoracic echocardiogram revealing an LVEF of 60%. Consider an outpatient event monitor if deemed necessary. There is no further cardiac work-up indicated at this time. Thank you for allowing us to participate in this patient's care. Please call if you have any questions or concerns. This medical document was created using an electronic medical record system with voice recognition software and computerized dictation system. Although this document has been carefully reviewed, there might still be some phonetic and typographical errors. Occasional wrong-word or ``sound-alike substitutions may have occurred due to the inherent limitations of voice recognition software. These areas are purely typographical due to imperfections of the software programs and do not reflect any compromise in the patient's medical care. Please read the chart carefully and recognize, using context, where these substitutions have occurred. Plan discussed with: Patient, Other Date of Service: Apr 10, 2024 Billing Provider: AARON GUIDRY MD Cardiology Common Codes: [id number] [facility] Apr 10, 2024 10:05
--- NOTE | 2024-04-10 10:07 | DVHCARD ---
Cardiology Stress Test [place] Treadmill Stress Test [place] Referring MD: LAURENCE Eaton Protocol: Brandon (without cardiolite) Reason for referral: Other (Chest pain & chronotropic response evaluation) Target heart Rate:@85%: 164 Percent MPHR: 193 METS: 10.10 Resting Heart rate: 80 Resting Blood Pressure: 115/80 Exercise Heart Rate: 164 Exercise Blood Pressure: 137/51 Reason for Termination of Test: Completion of Protocol Baseline EKG: NSR Stress EKG: Sinus tachycardia Functional Capacity: Good Normal Heart Rate Response: Adequate Blood Pressure Response: Normal Clinical response: Non-ischemic Arrhythmia?: No Cardiolite Injected?: No ST-T Changes: Non/Minimal Probability of Inducible Ische: Low Comments: Uneventful Brandon protocol with optimal chronotropic response. Date of Service: Apr 10, 2024 Billing Provider: AARON GUIDRY MD Cardiology Common Codes: PROCEDURE ONLY Treadmill w/o Cardiolite: [id number], INTERP, RPT SOFIE EATON [employer] Apr 10, 2024 10:07
[2024-04-10] MEDS ORDERED: IBUP-1453 PO (11:14)
[2024-04-10] MEDS ORDERED: PANT40T PO (11:14)
[2024-04-10 11:43] VITALS: BP 112/65; PULSE 71; RESP 19; TEMP 97.9; O2SAT 97
--- NOTE | 2024-04-10 14:52 | DVHDSRES ---
Discharge Summary Date of Admission Resident Creating Document: ROSAMARIA FLORES RESIDENT Apr 06, 2024 at 22:55 Date of Discharge: Apr 10, 2024 Admitting Diagnosis chest pain family history of AMI at a young age Labs/Diagnostic Data: Laboratory Results Test 04/09/24 08:14 04/08/24 05:27 04/07/24 11:39 04/07/24 06:22 White Blood Count 4.5 10^3/uL (4.4-10.8) Red Blood Count 4.07 10^6/uL (4.0-5.20) Hemoglobin 13.6 g/dL (12.2-16.2) Hematocrit 39.8 % (36.0-46.0) Mean Corpuscular Volume 97.9 fL (80.0-100.0) Mean Corpuscular Hemoglobin 33.5 pg (28.0-32.0) Mean Corpuscular Hemoglobin Concent 34.2 g/dL (32.0-36.0) Red Cell Distribution Width 13.5 % (11.8-14.3) Platelet Count 269 10^3/uL (140-450) Mean Platelet Volume 7.5 fL (6.9-10.8) Neutrophils (%) (Auto) 60.3 % (37.0-80.0) Lymphocytes (%) (Auto) 33.4 % (10.0-50.0) Monocytes (%) (Auto) 4.5 % (0.0-12.0) Eosinophils (%) (Auto) 1.3 % (0.0-7.0) Basophils (%) (Auto) 0.5 % (0.0-2.0) Neutrophils # (Auto) 2.7 10 ^3/uL (1.6-8.6) Lymphocytes # (Auto) 1.5 10 ^3/uL (0.4-5.4) Monocytes # (Auto) 0.2 10 ^3/uL (0-1.3) Eosinophils # (Auto) 0.1 10 ^3/uL (0-0.8) Basophils # (Auto) 0 10 ^3/uL (0-0.2) Nucleated Red Blood Cells 0.0 % Sodium Level 142 mmol/L (136-145) Potassium Level 4.1 mmol/L (3.5-5.1) Chloride Level 108 mmol/L (98-107) Carbon Dioxide Level 27 mmol/L (20-31) Anion Gap 7 (5-15) Blood Urea Nitrogen 8 mg/dL (9-23) Creatinine 0.72 mg/dL (0.550-1.02) Glomerular Filtration Rate Calc 117 mL/min (>90) BUN/Creatinine Ratio 11.1 (10.0-20.0) Serum Glucose 90 mg/dL (74-106) Calcium Level 9.9 mg/dL (8.7-10.4) Cortisol AM Sample 17.30 ug/dL (5.27-22.45) Triglycerides Level 75 mg/dL (< 150) Cholesterol Level 145 mg/dL (< 200) LDL Cholesterol 102 mg/dL (< 100) HDL Cholesterol 35 mg/dL (40-59) Influenza Type A Antigen Negative (Negative) Influenza Type B Antigen Negative (Negative) SARS-CoV-2 Antigen (Rapid) Negative (NEGATIVE) Erythrocyte Sedimentation Rate 22 mm/hr (0-20) Hemoglobin A1c 4.7 % A1C (<5.7) Total Bilirubin 0.7 mg/dL (0.2-1.0) Aspartate Amino Transferase (AST) 11 U/L (13-40) Alanine Aminotransferase (ALT) 23 U/L (7-40) Alkaline Phosphatase 63 U/L (46-116) C-Reactive Protein High Sensitivity 0.11 mg/dL (<1.0) Total Protein 6.7 g/dL (5.7-8.2) Albumin 4.4 g/dL (3.2-4.8) Free Thyroxine (T4) Calculated 1.16 ng/dL (0.89-1.76) Free Triiodothyronine (T3) pg/mL 3.41 pg/mL (2.3-4.2) Test 04/07/24 00:09 04/06/24 22:56 04/06/24 20:09 04/06/24 20:07 Magnesium Level 2.2 mg/dL (1.6-2.6) D-Dimer, Quantitative < 0.19 mg/L FEU (0.0-0.49) Troponin I High Sensitivity < 3 ng/L (</=34) Thyroid Stimulating Hormone (TSH) 0.44 uIU/mL (0.55-4.78) Urine Test Negative (Negative) Urine Opiates Screen Neg (NEGATIVE) Urine Fentanyl Screen Neg (NEGATIVE) Urine Barbiturates Screen Neg (NEGATIVE) Urine Phencyclidine Screen Neg (NEGATIVE) Urine Amphetamines Screen Neg (NEGATIVE) Urine Benzodiazepines Screen Neg (NEGATIVE) Urine Cocaine Screen Neg (NEGATIVE) Urine Cannabinoids Screen Neg (NEGATIVE) Urine Color Yellow (Yellow) Urine Clarity Clear (Clear) Urine pH 5.0 (5.0-9.0) Urine Specific [place] 1.029 (1.001-1.035) Urine Protein Negative (Negative) Urine Ketones 3+ (Negative) Urine Blood Trace /uL (Negative) Urine Nitrite Negative (Negative) Urine Bilirubin Negative (Negative) Urine Urobilinogen Normal mg/dL (Negative) Urine Leukocyte Esterase Negative /uL (Negative) Urine RBC 2 /hpf (0 - 4) Urine WBC 2 /hpf (0 - 5) Urine Squamous Epithelial Cells Few /hpf (<5) Urine Bacteria Few /hpf (None Seen) Urine Mucus Few (None Seen) Urine Glucose Normal mg/dL (Normal) Other Laboratory Tests 04/09/24 08:14 Brief Hx & Hospital Course: This 28-year-old female with a past medical history significant for asthma presented to the ED with a complaints of chest pain. Pain was substernal, pressure-like and rated 8/10 with radiation to the left upper arm. It was associated with numbness, shortness of breath and palpitation. Chest pain increased with breathing and walking, but improved with rest. Patient also complained of headache that felt like pressure in her head or sometimes felt like a tight band around her head. She denied any cough, fever, diarrhea, abdominal pain, constipation, acute joint pain or swelling, dysarthria, change in vision. Initials vitals were grossly unremarkable and lab workup showed K: 3.3, troponin < 3 ( 3x). EKG revealed normal sinus rhythm, and no ST elevation. D-dimer 0.19. Covid: Negative. Echo showed ejection fraction 60% and patient underwent a non-ischemic treadmill stress test and chronotropic response evaluation with optimal findings, "ST-T Changes: Non/Minimal, Probability of Inducible Ische: Low, Comments: Uneventful Brandon protocol with optimal chronotropic response" Examination General: Awake, alert, comfortable appearing, in no acute distress. HEENT: Head is normocephalic and atraumatic. Pupils are equal, round, and reactive to light. Extraocular muscles are intact. No nasal discharge. No facial trauma. Intraoral exam shows moist mucous membranes with no tonsillar enlargement or exudate. Neck: Supple with no cervical lymphadenopathy No meningismus. No goiter. Heart: Regular rate without murmur, rub, or gallop. Lungs: Equal breath sounds bilaterally with no wheezing, rales, or rhonchi. There is no chest wall tenderness or instability. Abdomen: No external sign of injury. Bowel sounds are present. Abdomen is soft, nontender. No rebound, no guarding, no rigidity. There are no palpable masses. There is no flank pain on exam. Extremities: Strong peripheral pulses. There is no clubbing, no cyanosis, and no edema. Skin: No rash. Neurologic: Cranial nerves II-XII intact without motor, sensory, or cerebellar deficit, no asterixis. Diagnoses Non cardiac Chest pain, ACS ruled out Family history of AMI ( 2x) at an early age Migraine Asthma Mild hypokalemia For medical standpoint, patient's chest pain is noncardiac related. She is advised to follow up with the credit director outpatient for any further testing and for regular follow up. Case and discharge plan discussed with Dr. Tijerina Consults/Reason for consult Symptomatic bradycardia chest pain Operations or Procedures Cardiology Stress Test [place] Treadmill Stress Test [place] Referring MD: LAURENCE Eaton Protocol: Brandon (without cardiolite) Reason for referral: Other (Chest pain & chronotropic response evaluation) Target heart Rate:@85%: 164 Percent MPHR: 193 METS: 10.10 Resting Heart rate: 80 Resting Blood Pressure: 115/80 Exercise Heart Rate: 164 Exercise Blood Pressure: 137/51 Reason for Termination of Test: Completion of Protocol Baseline EKG: NSR Stress EKG: Sinus tachycardia Functional Capacity: Good Normal Heart Rate Response: Adequate Blood Pressure Response: Normal Clinical response: Non-ischemic Arrhythmia?: No Cardiolite Injected?: No ST-T Changes: Non/Minimal Probability of Inducible Ische: Low Comments: Uneventful Brandon protocol with optimal chronotropic response. Date of Service: Apr 10, 2024 Billing Provider: AARON GUIDRY MD Cardiology Common Codes: PROCEDURE ONLY Treadmill w/o Cardiolite: [id number], INTERP, RPT SOFIE EATON Apr 10, 2024 10:07 E/M VISIT PERFORMED BY: TRANSCRIBED BY:SOFIE EAOTN TRANSCRIBED DATE/TIME:04/10/24 1007 ELECTRONICALLY SIGNED BY:SOFIE EATON 04/10/24 1007 PATIENT: LIZ RIZO ACCT: [id number] UNIT: [id number] : 1995 LOC: ER ROOM / BED: / AGE / SEX: 28 / F ADM STATUS: REG ER SERVICE 08 ORDERING PHYSICIAN: BENJA JACOB MD PROCEDURE(s): CXR2 - CHEST TWO VIEWS ROUTINE REASON: chest pain ORDER NUMBER(s): [id number], ACCESSION NUMBER(s): [id number] EXAM: XY CHEST TWO VIEWS ROUTINE TECHNIQUE: Two radiographic views of the chest CLINICAL HISTORY: chest pain COMPARISON: None Findings/Impression: Frontal and lateral chest radiographs demonstrate no acute osseous or superficial soft tissue abnormalities. The trachea is midline. The cardiac silhouette and mediastinum are within normal limits. No pneumothorax, pleural effusions, or consolidations. ATED BY: MERCEDES RODRÍGUEZ DO DICTATED DATE/TIME: 04/06/242152 Condition at Discharge: Good Final Diagnosis/Problems List Noncardia chest pain sinus bradycardia, Headache asthma overweight Discharge Disposition: Home Discharge Instruct/Medications Diet: Regular Activity: No Restrictions, As Tolerated Follow Up/Referral: fu with pcp in 1 week fu in [facility] next tuesday with dr. flores Medications: continue NSAIDs as prescribed Discharge Statement: "Patient was advised to return to the ER or call 911 if any headaches, dizziness, shortness of breath, chest pain, abdominal pain, bleeding, fevers, or worsening of medical condition. Patient was counseled about treatment plan, medications, possible side effects, patientverbalized understanding. All questions were answered to the best of my ability. This discharge took greater then 30 minutes in planning, reviewing documentation, counseling the patient, and discussing with other team members." ASSESSMENT ASSESSMENT Assessment sinus bradycardia, chest pain ruled out acs Date of Service: Apr 10, 2024 Billing Provider: GABRIEL YOUSIF MD Common Visit Codes: 99302-BIR/OBS DISCH DAY >30min ROSAMARIA FLORES RESIDENT Apr 10, 2024 14:52 GABRIEL YOUSIF MD Apr 11, 2024 10:12
== END 2024-04-10 12:40 | disposition home or self-care (01) | DRG 313 ==
LOC: EEVIPCON 20:00 → ER 20:00 → TELE 22:55 → TELE-WESTW 04-07 15:59
PROVIDERS: ADMIT Student in an Organized Health Care Education/Training Program; ATTEND Emergency Medicine
DX: R07.89 Other chest pain (principal); J45.909 Unspecified asthma, uncomplicated; E87.6 Hypokalemia; E78.2 Mixed hyperlipidemia; G43.909 Migraine, unspecified, not intractable, without status migrainosus; Z20.822 Contact with and (suspected) exposure to COVID-19; E66.9 Obesity, unspecified; R00.1 Bradycardia, unspecified; Z91.013 Allergy to seafood; Z90.49 Acquired absence of other specified parts of digestive tract; Z82.49 Family history of ischemic heart disease and other diseases of the circulatory system; Z79.82 Long term (current) use of aspirin; Z68.31 Body mass index [BMI] 31.0-31.9, adult
CPT/HCPCS: 36415; 71046; 80048; 80053; 80061; 80307; 81001; 81025; 82533; 83036; 83735; 84439; 84443; 84481; 84484; 85025; 85379; 85652; 86141; 87426; 87804; 93005; 93017; 93306; 96361; 96374; 96375; 99291; G0378; J1885; J2405; Q0162

== ENCOUNTER 2024-07-09 17:36 | Emergency (ER) | payer SELFPAY ==
[~2024-07-09] VITALS: Ht 157.5 cm; Wt 72.7 kg
[~2024-07-09 17:36] MED LIST: IBUP-1453 PO; PANT40T PO
--- NOTE | 2024-07-09 17:56 | ED.PDOC ---
HPI Allergic reaction HPI Comments HPI: Poor Historian. HPI: 28-year-old female presents with a chief complaint of allergic reaction to unknown trigger x 10 min prior to arrival. 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 Patient has multiple allergies (Avocado, Shellfish, [place], and Latex). Patient is able to speak in full, complete sentences and is sating at 98% on room air. PAST MEDICAL HISTORY: ASTHMA PAST SURGICAL HISTORY: APPENDECTOMY SOCIAL HISTORY: DENIES ALCOHOL, TOBACCO, AND DRUGS. ALLERGIES: AVOCADO, SHELLFISH, STRAWBERRY, LATEX REVIEW OF SYSTEMS: CONSTITUTIONAL: Denies acute: fever, diaphoresis, chills, generalized weakness. HEAD: Denies acute: headache, photophobia Eyes: Denies acute: Double vision, vision loss, eye pain, eye discharge. EARS: Denies acute: tinnitus, hearing loss, ear discharge, ear pain, THROAT: Denies acute: sore throat, swelling, difficulty swallowing , pain with swallowing, change in voice. NECK: Denies acute: neck pain, neck swelling, stiff neck. HEART: Denies acute : chest pain, palpitations, LUNGS: Denies acute: SOB, wheezing, cough, hemoptysis ABDOMEN: Denies acute: abdominal pain, Nausea, Vomiting, diarrhea, melena , hematemesis, hematochezia SKIN: Denies acute: lesions, EXTREMITIES: Denies acute: calf pain, numbness, tingling, weakness, denies pain in extremity. Denies acute: Low back pain. Neuro: Denies acute: focal neurological deficit, motor or sensory focal neurological d eficit, tremors, seizure like activity, confusion, dizziness, change in mental status, loss of bowel or bladder function, cauda equina like symptoms. : Denies acute: dysuria, hematuria, flank pain, increase in urinary frequency. PSYCH: Denies acute: hallucination, suicidal ideation, homicidal ideation. FEMALE: Denies acute: abnormal vaginal bleeding, foul odor, unusual discharge. PHYSICAL EXAM: General: no acute distress, awake and alert. Head: normocephalic, atraumatic. Neck: supple, trachea is midline, no swelling. Throat: Normal phonation. No obstruction, no swelling, no edema, no deviation, no drooling, no tongue swelling. Eyes:, no erythema, no purulent discharge, no proptosis, no icterus. Heart: regular rate, regular rhythm, no significant murmur appreciated. Lungs: no apparent respiratory distress, Able to speak in full sentences. No wheezing, no rhonchi, no crackles. No stridors Clear to auscultation bilaterally. Abdomen: non tender to palpation, non distended, soft, no guarding, no rebound, + bowel sounds. Neuro: Awake, Alert, oriented to name, self, situation, follows commands GCS=15. Speech is normal. Skin: no petechia, no purpura, no cyanosis, non-pale, not jaundice. Lower extremities: --no - Pitting edema no deformity, no focal swelling, no calf TTP. Makes eye contact. moves all four extremities. Face: no apparent facial droop. Ambulating in the ED independently. No nuchal rigidity, Kernig's sign, Brudzinski's sign, no meningeal signs. ED COURSE: Chief Complaint: Allergic Reaction Time Seen by MD: 17:50 Primary Care Provider: none Reviewed Notes: Nurses Notes, Medications, Allergies Allergies: Coded Allergies: Avocado (Verified Allergy, Unknown, 07/09/24) Latex (Verified Allergy, Unknown, 07/09/24) Shellfish Allergy (Verified Allergy, Unknown, 04/06/24) [place] (Verified Allergy, Unknown, 07/09/24) Home Meds Active Scripts Prednisone (Prednisone) 20 Mg Tab, 20 MG PO DAILY for 5 Days, #5 TAB Prov:JEREL WILKINS DO 07/10/24 Nitrofurantoin Monohydrate Mac (Macrobid) 100 Mg Cap, 100 MG PO BID for 7 Days, #14 CAP Prov:JEREL WILKINS DO 07/10/24 Ibuprofen (Ibuprofen) 400 Mg Tab, 1 TAB PO Q6HPRN for 5 Days, #20 TAB Prov:LEVI JOSHI [facility] 04/10/24 Pantoprazole Sodium Sesquihydr (Pantoprazole Sodium) 40 Mg Tab, 40 MG PO DAILY@0600 for 30 Days, #30 TAB 1 Refill Prov:LEVI JOSHI RESIDENT 04/10/24 Information Source: Patient Mode of Arrival: Ambulatory Past Medical History PAST MEDICAL HISTORY: Asthma Surgical History: Appendectomy 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 Was a procedure done?: No Differential diagnosis (all) Differential Diagnosis: Anaphylaxis, Angioedema, Bronchospasm, Contact Dermatitis, Drug Reaction, Hypotension, Renal Failure, Respiratory Failure, Shock, Urticaria X-Ray, Labs, Meds, VS Vital Signs Date Time Temp Pulse Resp B/P (MAP) Pulse Ox O2 Delivery O2 Flow Rate FiO2 07/10/24 01:00 97.6 70 18 125/75 (92) 100 97.6 07/09/24 18:16 78 20 100 Room Air* 0 21 07/09/24 18:16 98.5 78 20 127/75 (92) 100 98.5 07/09/24 17:43 98.7 83 17 122/80 (94) 98 Lab Test 07/09/24 23:44 07/09/24 21:40 07/09/24 20:44 Range/Units Urine Color Colorless Yellow Urine Clarity Clear Clear Urine pH 5.0 5.0-9.0 Urine Specific [place] 1.009 1.001-1.035 Urine Protein Negative Negative Urine Ketones Negative Negative Urine Blood Negative Negative /uL Urine Nitrite Negative Negative Urine Bilirubin Negative Negative Urine Urobilinogen Normal Negative mg/dL Urine Leukocyte Esterase Negative Negative /uL Urine RBC <1 0 - 4 /hpf Urine Microscopic WBC 2 0-5 /HPF Urine Squamous Epithelial Cells Few <5 /hpf Urine Bacteria Few H None Seen /hpf Urine Glucose 2+ H Normal mg/dL Urine Test Negative Negative Lactic Acid Level 1.1 0.4-2.0 mmol/L White Blood Count 19.2 H 4.4-10.8 10^3/uL Red Blood Count 4.16 4.0-5.20 10^6/uL Hemoglobin 14.0 12.2-16.2 g/dL Hematocrit 40.6 36.0-46.0 % Mean Corpuscular Volume 97.6 80.0-100.0 fL Mean Corpuscular Hemoglobin 33.5 H 28.0-32.0 pg Mean Corpuscular Hemoglobin Concent 34.4 32.0-36.0 g/dL Red Cell Distribution Width 12.9 11.8-14.3 % Platelet Count 260 140-450 10^3/uL Mean Platelet Volume 7.5 6.9-10.8 fL Neutrophils (%) (Auto) 96.5 H 37.0-80.0 % Lymphocytes (%) (Auto) 1.6 L 10.0-50.0 % Monocytes (%) (Auto) 1.7 0.0-12.0 % Eosinophils (%) (Auto) 0.1 0.0-7.0 % Basophils (%) (Auto) 0.1 0.0-2.0 % Neutrophils # (Auto) 18.5 H 1.6-8.6 10 ^3/uL Lymphocytes # (Auto) 0.3 L 0.4-5.4 10 ^3/uL Monocytes # (Auto) 0.3 0-1.3 10 ^3/uL Eosinophils # (Auto) 0 0-0.8 10 ^3/uL Basophils # (Auto) 0 0-0.2 10 ^3/uL Nucleated Red Blood Cells 0.0 % Sodium Level 137 136-145 mmol/L Potassium Level 4.1 3.5-5.1 mmol/L Chloride Level 107 98-107 mmol/L Carbon Dioxide Level 22 20-31 mmol/L Anion Gap 8 5-15 Blood Urea Nitrogen 12 9-23 mg/dL Creatinine 0.81 0.550-1.02 mg/dL Glomerular Filtration Rate Calc 102 >90 mL/min BUN/Creatinine Ratio 14.8 10.0-20.0 Serum Glucose 101 74-106 mg/dL Calcium Level 10.5 H 8.7-10.4 mg/dL Total Bilirubin 0.8 0.2-1.0 mg/dL Aspartate Amino Transferase (AST) 16 13-40 U/L Alanine Aminotransferase (ALT) 24 7-40 U/L Alkaline Phosphatase 78 46-116 U/L Total Protein 7.7 5.7-8.2 g/dL Albumin 5.0 H 3.2-4.8 g/dL Current Medications Medications (Trade) Dose Ordered Sig/Bernadette Route Start Time Stop Time Status Last Admin Famotidine (Pepcid Injection) 20 mg ONCE ONCE IV 07/09/24 18:00 07/09/24 18:01 DC 07/09/24 18:13 Methylprednisolone Sodium Succinate (Solu Medrol) 125 mg ONCE ONCE IV 07/09/24 18:00 07/09/24 18:01 DC 07/09/24 18:13 Diphenhydramine HCl (Benadryl Injection) 50 mg ONCE ONCE IV 07/09/24 18:00 07/09/24 18:01 DC 07/09/24 18:13 Ondansetron HCl (Zofran) 8 mg ONCE ONCE IV 07/09/24 20:30 07/09/24 20:31 DC 07/09/24 20:39 Ceftriaxone Sodium 50 ml @ 100 mls/hr ONCE ONCE IV 07/09/24 21:30 07/09/24 21:59 DC 07/09/24 21:56 Time of 1ST Reevaluation: 18:20 Reevaluation 1ST: Unchanged Time of 2ND Reevaluation: 20:19 Reevaluation 2ND: Improved Patient Education/Counseling: Diagnosis, Treatment Family Education/Counseling: No Family Present Comments Patient presented with the above HPI.---allergic rhinitis---workup was initiated. patient was found with the above mentioned diagnosis. the following medications were ordered: please refer to order lists of meds and tests obtained by myself Dr. Wilkins. Patient ED course and VS have been stabilized. Patient has been reassessed in the ED and remained in a stable condition. Pertinent incidental findings were discussed with the patient and/or family. Patient/family voices understanding and is agreeable with plan. Patient has been observed in the ED adequate length of time to insure improvement/stability. Escalation of care considered: Consideration of escalation to observation or admission Labs were drawn awhile after patient was given steroids. That was noted leukocytosis without any apparent sign of infection. Patient was given empiric antibiotics and discharged home with UTI antibiotics as well. Patient was DISCHARGED home in a stable condition. All the reports of any imaging studies that were ordered by myself were reviewed by myself. Departure 1 Departure Time of Disposition: 00:49 Impression: Primary Impression: Allergic reaction Additional Impressions: UTI (urinary tract infection) Leukocytosis Disposition: 01 HOME / SELF CARE / HOMELESS Condition: Stable Additional Instructions: Additional discharge instructions: You MUST follow-up with your primary care/family doctor in 1 to 2 days. If you are unable to see your primary care/family doctor, please return to our emergency room for re-assessment and re-evaluation in 1 to 2 days. Return to the emergency room here in our facility or to the nearest ER [facility] if your symptoms change or worsen. CONSULTATIONS: you MUST Follow-up for consultation as soon as possible with: -aviation consultant doctor. You MUST call the consultants office yourself to make an appointment. You may need to arrange that through your insurance and/or your primary/family doctor. If you are unable to see the leadership development consultant in 1 to 2 days, you must return to our emergency room (or any other ER of your choice) for re-assessment and re- evaluation. Adequate fluid hydration. Take the following dmah-alp-fqekyrt medications daily for the next five days: Pepcid 20 mg one pill by mouth daily for five days Benadryl 25 mg one pill by mouth daily for five days e-Prescriptions Prednisone (Prednisone) 20 Mg Tab 20 MG PO DAILY for 5 Days, #5 TAB Prov: JEREL WILKINS DO 07/10/24 Nitrofurantoin Monohydrate Mac (Macrobid) 100 Mg Cap 100 MG PO BID for 7 Days, #14 CAP Prov: JEREL WILKINS DO 07/10/24 Discharged With: Self Critical Care Note Critical Care Time?: Yes (35 min-critical care time only) I personally scribed for JEREL WILKINS DO ([email or web address]) on 07/09/24 at 17:56. Electronically submitted by Braulio Potter ([email or web address]). JEREL WILKINS DO Jul 09, 2024 17:56
[2024-07-09] MEDS: methylPREDNISolone SOD SUCC 125 MG/2 ML VL IV ONE (18:13)
[2024-07-09] MEDS: FAMOTIDINE (10MG/ML) 2ML VL IV ONE (18:13)
[2024-07-09] MEDS: diphenhdrAMINE HCL 50 MG/1 ML VL IV ONE (18:13)
[2024-07-09 18:16] VITALS: PULSE 78; RESP 20; O2SAT 100
[2024-07-09] MEDS: ONDANSETRON HCL 4 MG/2 ML VIAL IV ONE (20:39)
[2024-07-09 21:26] LABS: Basophils # (auto) 0 10 ^3/uL (0-0.2); Basophils % (auto) 0.1 % (0.0-2.0); Eosinophils # (auto) 0 10 ^3/uL (0-0.8); Eosinophils % (auto) 0.1 % (0.0-7.0); Hematocrit 40.6 % (36.0-46.0); Lymphocytes # (auto) 0.3 10 ^3/uL (0.4-5.4); Lymphocytes % (auto) 1.6 % (10.0-50.0); Mean Corpuscular Hemoglobin 33.5 pg (28.0-32.0); Mean Corpuscular Hgb Conc. 34.4 g/dL (32.0-36.0); Mean Corpuscular Volume 97.6 fL (80.0-100.0); Monocytes # (auto) 0.3 10 ^3/uL (0-1.3); Monocytes % (auto) 1.7 % (0.0-12.0); Neutrophils # (auto) 18.5 10 ^3/uL (1.6-8.6); Neutrophils % (auto) 96.5 % (37.0-80.0); Platelet Count (auto) 260 10^3/uL (140-450); Red Blood Cells 4.16 10^6/uL (4.0-5.20); Red Cell Distribution Width 12.9 % (11.8-14.3); White Blood Cell 19.2 10^3/uL (4.4-10.8)
[2024-07-09 21:44] LABS: Alanine Aminotransferase 24 U/L (7-40); Alkaline Phosphatase 78 U/L (46-116); Anion Gap 8 (5-15); Aspartate Aminotransferase 16 U/L (13-40); BUN/Creatinine Ratio 14.8 (10.0-20.0); Bilirubin, Total 0.8 mg/dL (0.2-1.0); Blood Urea Nitrogen 12 mg/dL (9-23); Carbon Dioxide 22 mmol/L (20-31); Chloride 107 mmol/L (98-107); Glucose 101 mg/dL (74-106); Potassium 4.1 mmol/L (3.5-5.1); Sodium 137 mmol/L (136-145); Total Protein 7.7 g/dL (5.7-8.2)
[2024-07-09 21:47] LABS: Calcium 10.5 mg/dL (8.7-10.4)
[2024-07-09] MEDS: cefTRIAXone 1GM/50ML D5W 50 ML IV ONE (21:56)
[2024-07-10 00:30] LABS: Urine Bacteria FEW /hpf (None Seen); Urine Blood Negative /uL (Negative); Urine Clarity Clear (Clear); Urine Color Colorless (Yellow); Urine Protein, UAD Negative (Negative); Urine Specific Gravity 1.009 (1.001-1.035); Urine Squamous Epithelial Cell FEW /hpf (<5); Urine Urobilinogen Normal (Negative); Urine WBC 2 /HPF (0-5)
[2024-07-10] MEDS ORDERED: PRED20TA2 PO (00:51)
[2024-07-10] MEDS ORDERED: NITR-87 PO (00:51)
[2024-07-10 01:00] VITALS: BP 125/75; PULSE 70; RESP 18; TEMP 97.6; O2SAT 100
== END 2024-07-10 01:05 | disposition home or self-care (01) ==
LOC: ER 17:36
DX: T78.49XA Other allergy, initial encounter (principal); N39.0 Urinary tract infection, site not specified; D72.829 Elevated white blood cell count, unspecified; J45.909 Unspecified asthma, uncomplicated; Z90.49 Acquired absence of other specified parts of digestive tract; Z79.899 Other long term (current) drug therapy; X58.XXXA Exposure to other specified factors, initial encounter
CPT/HCPCS: 36415; 80053; 81001; 81025; 83605; 85025; 87040; 96365; 96375; 99284; J0696; J1200; J2405; J2919; J3490

== ENCOUNTER 2024-09-10 13:53 | Emergency (ER) | payer MEDICAID ==
[~2024-09-10] VITALS: Ht 157.5 cm; Wt 75.3 kg
[~2024-09-10 13:53] MED LIST changes: +NITR-87 PO; +PRED20TA2 PO
--- NOTE | 2024-09-10 14:18 | ED.PDOC ---
HPI Comments 29 y/o F, with PMHx of asthma and HLD presents to the ED for CC of chest pain. Patient states, she has been experiencing substernal chest pain that radiates to her left arm since, last night (09/09/24). Patient reports, associated symptoms of shortness of breath and nausea. Patient relays, that she was previously admitted at [facility] for similar symptoms and was told symptoms were due to bradycardia. Patient denies weakness, palpitations, or headache. No other symptoms or modifying factors present at this time. Time Seen by MD: 14:11 Primary Care Provider: none Reviewed Notes: Nurses Notes, Medications, Allergies Allergies: Coded Allergies: Avocado (Verified Allergy, Unknown, 07/09/24) Latex (Verified Allergy, Unknown, 07/09/24) Shellfish Allergy (Verified Allergy, Unknown, 04/06/24) [place] (Verified Allergy, Unknown, 07/09/24) Home Meds Active Scripts Prednisone (Prednisone) 20 Mg Tab, 20 MG PO DAILY for 5 Days, #5 TAB Prov:JEREL CHILDS DO 07/10/24 Nitrofurantoin Monohydrate Mac (Macrobid) 100 Mg Cap, 100 MG PO BID for 7 Days, #14 CAP Prov:JEREL CHILDS DO 07/10/24 Ibuprofen (Ibuprofen) 400 Mg Tab, 1 TAB PO Q6HPRN for 5 Days, #20 TAB Prov:LEVI JOSHI RESIDENT 04/10/24 Pantoprazole Sodium Sesquihydr (Pantoprazole Sodium) 40 Mg Tab, 40 MG PO DAILY@0600 for 30 Days, #30 TAB 1 Refill Prov:LEVI JOSHI RESIDENT 04/10/24 Information Source: Patient Mode of Arrival: EMS Severity: Moderate Timing: Hours Duration: Since onset Prehospital treatment: None Location: Substernal Radiation: Arm (L) Onset: At Rest Cardiac Risk Factors: Hyperlipidemia PE Risk Factors: None History of: None Modifying Factors: Nothing Associated Signs and Symptoms: SOB, N/V Past Medical History PAST MEDICAL HISTORY: Asthma, High Lipids 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 Family History Family History: Reviewed,noncontributory to illness Social History Smoker: Non-Smoker Alcohol: Denies ETOH Use Drugs: Denies Drug Use Lives In: Home Constitutional: denies: chills, diaphoresis, fatigue, fever, malaise, sweats, weakness, others EENTM: denies: blurred vision, double vision, ear bleeding, ear discharge, ear drainage, ear pain, ear ringing, eye pain, eye redness, hearing loss, mouth pain, mouth swelling, nasal discharge, nose bleeding, nose congestion, nose pain, photophobia, tearing, throat pain, throat swelling, voice changes, others Respiratory: reports: shortness of breath; denies: cough, hemoptysis, orthopnea, SOB at rest, SOB with excertion, stridor, wheezing, others Cardiovascular: reports: chest pain, left arm pain; denies: dizzy spells, diaphoresis, Dyspnea on exertion, edema, irregular heart beat, lightheadedness, palpitations, PND, syncope, others Gastrointestinal: reports: nausea; denies: abdomen distended, abdominal pain, blood streaked bowels, constipated, diarrhea, dysphagia, difficulty swallowing, hematemesis, melena, poor appetite, poor fluid intake, rectal bleeding, rectal pain, vomiting, others Genitourinary: denies: abnormal vagina bleeding, burning, dyspareunia, dysuria, flank pain, frequency, hematuria, incontinence, pain, , vagina discharge, urgency, others Neurological: denies: dizziness, fainting, headache, left sided numbness, left sided weakness, numbness, paresthesia, pre-existing deficit, right sided numbness, right sided weakness, seizure, speech problems, tingling, tremors, weakness, others Musculoskeletal: denies: back pain, gout, joint pain, joint swelling, muscle pain, muscle stiffness, neck pain, others Integumetry: denies: bruises, change in color, change in hair/nails, dryness, laceration, lesions, lumps, rash, wounds, others Allergic/Immunocompromised: denies: Difficulty Healing, Frequent Infections, Hives, Itching, others Hematologic/Lymphatic: denies: anemia, blood clots, easy bleeding, easy bruising, swollen glands, others Endocrine: denies: excessive hunger, excessive sweating, excessive thirst, excessive urination, flushing, intolerance to cold, intolerance to heat, unexplained weight gain, unexplained weight loss, others Psychiatric: denies: anxiety, bipolar disorder, depression, hopeless, panic disorder, schizophrenia, sleepless, suicidal, others All Other Systems: Reviewed and Negative Physical Exam General Appearance: No Apparent Distress HEENT: Normal ENT Inspection, Pharynx Normal, TMs Normal Neck: Full Range of Motion, Non-Tender, Normal, Normal Inspection Respiratory: Chest Non-Tender, Lungs Clear, No Accessory Muscle Use, No Respiratory Distress, Normal Breath Sounds Cardiovascular: No Edema, No JVD, No Murmur, No Gallop, Normal Peripheral Pulses, Regular Rate/Rhythm Breast Exam: Deferred Gastrointestinal: No Organomegaly, Non Tender, No Pulsatile Mass, Normal Bowel Sounds, Soft Genitalia: Deferred Pelvic: Deferred Rectal: Deferred Extremities: No calf tenderness, Normal capillary refill, Normal inspection, Normal range of motion, Non-tender, No pedal edema Musculoskeletal : Apperance: Normal Neurologic: Alert, black top roller II-XII nml as Tested, No Motor Deficits, Normal Affect, Normal Mood, No Sensory Deficits Cerebellar Function: Normal Reflexes: Normal Skin: Dry, Normal Color, Warm Lymphatic: No Adenopathy EKG EKG : Pulse Rate (adult): 80 [place]: Normal Cardiac Rhythm: NSR Block: None ST: Nonsp Was a procedure done? Was a procedure done?: No CP Differential Dx Differential Diagnosis: Anxiety / Panic Attack Differential Diagnosis: Chest Wall Pain, Costochondritis X-Ray, Labs, Meds, VS Vital Signs Date Time Temp Pulse Resp B/P (MAP) Pulse Ox O2 Delivery O2 Flow Rate FiO2 09/10/24 15:47 99.0 76 16 124/79 (94) 100 99.0 09/10/24 15:01 79 09/10/24 13:54 98.0 86 16 156/86 (109) 98 98.0 Lab Test 09/10/24 14:46 09/10/24 14:00 Range/Units Troponin I High Sensitivity 7 9 </=34 ng/L White Blood Count 7.5 4.4-10.8 10^3/uL Red Blood Count 4.47 4.0-5.20 10^6/uL Hemoglobin 14.9 12.2-16.2 g/dL Hematocrit 42.1 36.0-46.0 % Mean Corpuscular Volume 94.1 80.0-100.0 fL Mean Corpuscular Hemoglobin 33.2 H 28.0-32.0 pg Mean Corpuscular Hemoglobin Concent 35.3 32.0-36.0 g/dL Red Cell Distribution Width 13.0 11.8-14.3 % Platelet Count 316 140-450 10^3/uL Mean Platelet Volume 7.4 6.9-10.8 fL Neutrophils (%) (Auto) 62.4 37.0-80.0 % Lymphocytes (%) (Auto) 30.6 10.0-50.0 % Monocytes (%) (Auto) 5.6 0.0-12.0 % Eosinophils (%) (Auto) 1.0 0.0-7.0 % Basophils (%) (Auto) 0.4 0.0-2.0 % Neutrophils # (Auto) 4.7 1.6-8.6 10 ^3/uL Lymphocytes # (Auto) 2.3 0.4-5.4 10 ^3/uL Monocytes # (Auto) 0.4 0-1.3 10 ^3/uL Eosinophils # (Auto) 0.1 0-0.8 10 ^3/uL Basophils # (Auto) 0 0-0.2 10 ^3/uL Nucleated Red Blood Cells 0.1 % D-Dimer, Quantitative < 0.19 0.0-0.49 mg/L FEU Sodium Level 140 136-145 mmol/L Potassium Level 3.7 3.5-5.1 mmol/L Chloride Level 105 98-107 mmol/L Carbon Dioxide Level 25 20-31 mmol/L Anion Gap 10 5-15 Blood Urea Nitrogen 8 L 9-23 mg/dL Creatinine 0.69 0.550-1.02 mg/dL Glomerular Filtration Rate Calc 121 >90 mL/min BUN/Creatinine Ratio 11.6 10.0-20.0 Serum Glucose 79 74-106 mg/dL Calcium Level 9.9 8.7-10.4 mg/dL CXR: IMPRESSION: No acute cardiopulmonary disease. The CBC is within normal limits The chemistry panel is within normal limits The D-dimer is negative The patient's troponin level x2 is negative At this time, the patient is being discharged and will follow up with the primary care doctor The patient will return to the emergency department's condition worsens. The patient will follow up with the primary care doctor Images Reviewed?: Images reviewed and evaluated by me Time of 1ST Reevaluation: 14:41 Reevaluation 1ST: Unchanged Time of 2ND Reevaluation: 16:31 Reevaluation 2ND: Improved Patient Education/Counseling: Diagnosis, Treatment, Prognosis, Need For Follow Up Family Education/Counseling: No Family Present Departure 1 Departure Time of Disposition: 16:32 Impression: Primary Impression: Non-cardiac chest pain Disposition: 01 HOME / SELF CARE / HOMELESS Condition: Fair Discharged With: Self Critical Care Note Critical Care Time?: No Stability Stability form required: No Heart Score Heart Score: Heart Score Response (Comments) Value History N/A 0 EKG N/A 0 Age N/A 0 Risk Factors N/A 0 Troponin N/A 0 Total 0 I personally scribed for KAI WILLETT MD ([email or web address]) on 09/10/24 at 14:18. Electronically submitted by Deysi Grover ([email or web address]). I personally scribed for KAI WILLETT MD ([email or web address]) on 09/10/24 at 16:11. Electronically submitted by Deysi Grover ([email or web address]). KAI WILLETT MD September 10, 2024 14:18
[2024-09-10 14:42] LABS: Anion Gap 10 (5-15); Carbon Dioxide 25 mmol/L (20-31); Chloride 105 mmol/L (98-107); Potassium 3.7 mmol/L (3.5-5.1); Sodium 140 mmol/L (136-145)
--- NOTE | 2024-09-10 14:42 | DVH ---
XY CHEST TWO VIEWS ROUTINE CLINICAL HISTORY: cp COMPARISON: XY CHEST TWO VIEWS ROUTINE on DOS: 04/06/24 TECHNIQUE: Frontal and lateral view of the chest was obtained FINDINGS: Lines and Tubes: None Lungs: No focal consolidation. Pleura: No effusion. No pneumothorax. Cardiomediastinal contours: Unremarkable Bones: No acute osseous abnormality. IMPRESSION: No acute cardiopulmonary disease.
[2024-09-10 14:43] LABS: Basophils # (auto) 0 10 ^3/uL (0-0.2); Basophils % (auto) 0.4 % (0.0-2.0); Calcium 9.9 mg/dL (8.7-10.4); Eosinophils # (auto) 0.1 10 ^3/uL (0-0.8); Hematocrit 42.1 % (36.0-46.0); Hemoglobin 14.9 g/dL (12.2-16.2); Lymphocytes # (auto) 2.3 10 ^3/uL (0.4-5.4); Lymphocytes % (auto) 30.6 % (10.0-50.0); Mean Corpuscular Hemoglobin 33.2 pg (28.0-32.0); Mean Corpuscular Hgb Conc. 35.3 g/dL (32.0-36.0); Mean Corpuscular Volume 94.1 fL (80.0-100.0); Monocytes # (auto) 0.4 10 ^3/uL (0-1.3); Monocytes % (auto) 5.6 % (0.0-12.0); Neutrophils # (auto) 4.7 10 ^3/uL (1.6-8.6); Neutrophils % (auto) 62.4 % (37.0-80.0); Nucleated Red Blood Cells % 0.1 %; Platelet Count (auto) 316 10^3/uL (140-450); Red Blood Cells 4.47 10^6/uL (4.0-5.20); White Blood Cell 7.5 10^3/uL (4.4-10.8)
[2024-09-10 14:48] LABS: BUN/Creatinine Ratio 11.6 (10.0-20.0); Blood Urea Nitrogen 8 mg/dL (9-23); Glucose 79 mg/dL (74-106)
[2024-09-10 17:24] VITALS: BP 127/76; PULSE 67; RESP 16; TEMP 98.3; O2SAT 98
[2024-09-10] MEDS: ASPirin 81 mg TAB PO ONE (17:25)
[2024-09-10 17:27] LABS: Urine Bacteria FEW /hpf (None Seen); Urine Blood Negative /uL (Negative); Urine Clarity Clear (Clear); Urine Color Light-Yellow (Yellow); Urine Protein, UAD Negative (Negative); Urine Squamous Epithelial Cell FEW /hpf (<5); Urine Urobilinogen Normal (Negative); Urine WBC 1 /HPF (0-5); Urine pH 6.5 (5.0-9.0)
--- NOTE | 2024-09-11 08:57 | ECG ---
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
--- NOTE | 2024-09-11 09:53 | ECG ---
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
== END 2024-09-10 17:28 | disposition home or self-care (01) ==
LOC: ER 13:56
DX: R07.89 Other chest pain (principal); E78.5 Hyperlipidemia, unspecified; J45.909 Unspecified asthma, uncomplicated; Z79.899 Other long term (current) drug therapy; Z90.49 Acquired absence of other specified parts of digestive tract; Z91.018 Allergy to other foods
CPT/HCPCS: 36415; 71046; 80048; 81001; 84484; 85025; 85379; 93005

== ENCOUNTER 2024-11-02 10:11 | Emergency (ER) | payer OTHER ==
[~2024-11-02] VITALS: Ht 157.5 cm; Wt 73.9 kg
[2024-11-02] MEDS ORDERED: PROM1SOL4 PO (11:03)
[2024-11-02] MEDS ORDERED: AZIT500T66 PO (11:03)
[2024-11-02] MEDS ORDERED: IBUP1TAB5 PO (11:03)
--- NOTE | 2024-11-02 11:03 | DVH ---
EXAM: XR Chest, 1 View CLINICAL INDICATION: Pain TECHNIQUE: Frontal view of the chest. COMPARISON: No relevant prior studies available. FINDINGS: LUNGS AND PLEURAL SPACES: Unremarkable. No consolidation. No pneumothorax. HEART: Unremarkable. No cardiomegaly. MEDIASTINUM: Unremarkable. Normal mediastinal contour. BONES/JOINTS: Unremarkable. No acute fracture. IMPRESSION: No acute cardiopulmonary process.
--- NOTE | 2024-11-02 11:06 | ED.PDOC ---
SOB-HPI HPI Comments A 29 YEAR-OLD FEMALE PRESENTS TO THE ED WITH A CHIEF COMPLAINT OF FLU LIKE SYMPTOMS OF X5 DAYS AGO. PATIENT STATES THAT SHE HAS HAD COUGHING AND NASAL CONGESTION FOR X5 DAYS AND SORE THROAT WITH BODY ACHES OF X3 DAYS AGO. PATIENT HAS NO FURTHER SYMPTOMS AT THIS TIME AND OTHERWISE DENIES FURTHER ASSOCIATED SYMPTOMS OF FEVER, CHILLS, N/V, PHLEGM, OR MIGRAINE. PATIENT IS ALERT, ORIENTED X 4, AND HAS STEADY GAIT. 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 Family History Family History: Reviewed,noncontributory to illness Social History Smoker: Non-Smoker Alcohol: Denies ETOH Use Drugs: Denies Drug Use Lives In: Home Constitutional: reports: others (BODY ACHE ); denies: chills, diaphoresis, fatigue, fever, malaise, sweats, weakness EENTM: reports: nose congestion, throat pain (SORE THROAT); denies: blurred vision, double vision, ear bleeding, ear discharge, ear drainage, ear pain, ear ringing, eye pain, eye redness, hearing loss, mouth pain, mouth swelling, nasal discharge, nose bleeding, nose pain, photophobia, tearing, throat swelling, voice changes, others Respiratory: reports: cough; denies: hemoptysis, orthopnea, SOB at rest, shortness of breath, SOB with excertion, stridor, wheezing, others Cardiovascular: denies: chest pain, dizzy spells, diaphoresis, Dyspnea on exertion, edema, irregular heart beat, left arm pain, lightheadedness, palpitations, PND, syncope, others Gastrointestinal: denies: abdomen distended, abdominal pain, blood streaked bowels, constipated, diarrhea, dysphagia, difficulty swallowing, hematemesis, melena, nausea, poor appetite, poor fluid intake, rectal bleeding, rectal pain, vomiting, others Genitourinary: denies: abnormal vagina bleeding, burning, dyspareunia, dysuria, flank pain, frequency, hematuria, incontinence, pain, , vagina discharge, urgency, others Neurological: denies: dizziness, fainting, headache, left sided numbness, left sided weakness, numbness, paresthesia, pre-existing deficit, right sided numbness, right sided weakness, seizure, speech problems, tingling, tremors, weakness, others Musculoskeletal: denies: back pain, gout, joint pain, joint swelling, muscle pain, muscle stiffness, neck pain, others Integumetry: denies: bruises, change in color, change in hair/nails, dryness, laceration, lesions, lumps, rash, wounds, others Allergic/Immunocompromised: denies: Difficulty Healing, Frequent Infections, Hives, Itching, others Hematologic/Lymphatic: denies: anemia, blood clots, easy bleeding, easy bruising, swollen glands, others Endocrine: denies: excessive hunger, excessive sweating, excessive thirst, excessive urination, flushing, intolerance to cold, intolerance to heat, unexplained weight gain, unexplained weight loss, others Psychiatric: denies: anxiety, bipolar disorder, depression, hopeless, panic disorder, schizophrenia, sleepless, suicidal, others All Other Systems: Reviewed and Negative Physical Exam General Appearance: No Apparent Distress, Normal HEENT: PERRL/EOMI, Pharyngeal Erythema (TONSILLAR SWEL.LING, NO EXUDATES. ), TMs Normal Neck: Full Range of Motion, Non-Tender, Normal, Normal Inspection Respiratory: Expiration, No Accessory Muscle Use, No Respiratory Distress, Rhonchi Cardiovascular: No Edema, No JVD, No Murmur, No Gallop, Normal Peripheral Pulses, Regular Rate/Rhythm Breast Exam: Deferred Gastrointestinal: No Organomegaly, Non Tender, No Pulsatile Mass, Normal Bowel Sounds, Soft Genitalia: Deferred Pelvic: Deferred Rectal: Deferred Extremities: No calf tenderness, Normal capillary refill, Normal inspection, Normal range of motion, Non-tender, No pedal edema Musculoskeletal : Apperance: Normal Neurologic: Alert, satellite instruction facilitator II-XII nml as Tested, No Motor Deficits, Normal Affect, Normal Mood, No Sensory Deficits Cerebellar Function: Normal Reflexes: Normal Skin: Dry, Normal Color, Warm Peripheral Pulses: 2+ carotid (R), 2+ carotid (L) Lymphatic: No Adenopathy Was a procedure done? Was a procedure done?: No Differential Dx Differential Diagnosis: Anxiety, Asthma, Bronchitis, Panic Attack, Pneumonia, Respiratory Distress, Pharyngitis X-Ray, Labs, Meds, VS Vital Signs Date Time Temp Pulse Resp B/P (MAP) Pulse Ox O2 Delivery O2 Flow Rate FiO2 11/02/24 10:23 98.7 103 16 124/59 (80) 99 98.7 EXAM: XR Chest, 1 View CLINICAL INDICATION: Pain TECHNIQUE: Frontal view of the chest. COMPARISON: No relevant prior studies available. FINDINGS: LUNGS AND PLEURAL SPACES: Unremarkable. No consolidation. No pneumothorax. HEART: Unremarkable. No cardiomegaly. MEDIASTINUM: Unremarkable. Normal mediastinal contour. BONES/JOINTS: Unremarkable. No acute fracture. IMPRESSION: No acute cardiopulmonary process. X-Ray, Labs, Meds, VS Comment EXTERNAL MEDICAL RECORDS: NONE INDEPENDENT HISTORIANS: NONE SOCIAL DETERMINANTS OF HEALTH: NONE LABS ORDERED: NONE REVIEWED AND INTERPRETED RESULTS: NONE IMAGING ORDERED: CHEST XRAY TREATMENTS ORDERED: NONE PATIENT'S CASE AND RESULTS HAVE BEEN DISCUSSED WITH THE ED ATTENDING PHYSICIAN, DR. FISH, AND THEY AGREE WITH MY PLAN OF CARE. RX: AZITHROMYCIN, IBUPROFEN, PROMETHEZINE I HAVE DISCUSSED IMAGING AND LAB RESULTS WITH THE PATIENT AND HAVE INSTRUCTED THE PATIENT TO FOLLOW UP WITH THEIR PCP IN 1-2 DAYS. THE PATIENT FULLY UNDERSTANDS THEIR RESULTS AND ARE AWARE THEY NEED TO FOLLOW UP WITH THEIR PCP FOR FURTHER EVALUATION IF THEIR SYMPTOMS PERSIST. Images Reviewed?: Images reviewed and evaluated by me Time of 1ST Reevaluation: 11:11 Reevaluation 1ST: Improved Patient Education/Counseling: Diagnosis, Treatment, Need For Follow Up Family Education/Counseling: Diagnosis, Treatment, Need For Follow Up Medical Screening: No EMC Exist At This Time SEPSIS Sepsis Screen Date sepsis recognized/suspect: Nov 02, 2024 Time Sepsis recognized/suspect: 1023 Recent Procedure: No On Antibiotic Therapy: No Respiratory Rate >20: No Heart Rate >90: No Temp<36 C (96.8 F) or >38.3 C: No SBP <90 or MAP <65 mmHG: No New Acute Mental Status Change: No Is the patient on CPAP, BIPAP,: No Physician Orders Chest Xray 1 View (11/02/24 10:39) Vital Signs Date Time Temp Pulse Resp B/P (MAP) Pulse Ox O2 Delivery O2 Flow Rate FiO2 11/02/24 10:23 98.7 103 16 124/59 (80) 99 98.7 Departure 1 Departure Time of Disposition: 11:11 Impression: Primary Impression: Acute bronchitis Qualified Codes: J20.9 - Acute bronchitis, unspecified Additional Impression: Acute tonsillitis Qualified Codes: J03.90 - Acute tonsillitis, unspecified Disposition: HOME / SELF CARE / HOMELESS Condition: Stable Additional Instructions: FOLLOW-UP WITH PCP IN 1 TO 2 DAYS. TAKE MEDICATIONS PRESCRIBED. RETURN TO ED FOR ANY NEW OR WORSENING SYMPTOMS. e-Prescriptions Ibuprofen Micronized (Ibuprofen) 600 Mg Tab 600 MG PO TID, #30 TAB Prov: ADRIANA OLIVEIRA 11/02/24 Promethazine-Dm (Promethazine Dm 6.25-15 mg/5Ml) 1 Ursula Ursula 5 ML PO TID, #160 ML Prov: ADRIANA OLIVEIRA 11/02/24 Azithromycin (Azithromycin) 500 Mg Tab 1 TAB PO DAILY, #5 TAB Prov: ADRIANA OLIVEIRA 11/02/24 Discharged With: Self Critical Care Note Critical Care Time?: No Stability Stability form required: No Heart Score Heart Score: Heart Score Response (Comments) Value History N/A 0 EKG N/A 0 Age N/A 0 Risk Factors N/A 0 Troponin N/A 0 Total 0 I personally scribed for ADRIANA OLIVEIRA ([email or web address]) on 11/02/24 at 11:06. Electronically submitted by Leslie Rodarte ([email or web address]). I personally scribed for ADRIANA OLIVEIRA ([email or web address]) on 11/02/24 at 11:08. Electronically submitted by Leslie Rodarte ([email or web address]). I personally scribed for ADRIANA OLIVEIRA ([email or web address]) on 11/02/24 at 11:09. Electronically submitted by Leslie Rodarte ([email or web address]). ADRIANA OLIVEIRA Nov 02, 2024 11:06
[2024-11-02 11:15] VITALS: BP 123/67; PULSE 80; RESP 18; TEMP 98.4; O2SAT 98
== END 2024-11-02 11:23 | disposition home or self-care (01) ==
LOC: ER 10:11
DX: J20.9 Acute bronchitis, unspecified (principal); J03.90 Acute tonsillitis, unspecified; E78.5 Hyperlipidemia, unspecified; J45.909 Unspecified asthma, uncomplicated; Z90.49 Acquired absence of other specified parts of digestive tract
CPT/HCPCS: 71045

== ENCOUNTER 2024-11-15 14:13 | Emergency (ER) | payer OTHER ==
[~2024-11-15] VITALS: Ht 157.5 cm; Wt 73.5 kg
[~2024-11-15 14:13] MED LIST changes: +AZIT500T66 PO; +IBUP1TAB5 PO; +PROM1SOL4 PO
[2024-11-15] MEDS ORDERED: METH4PAK PO (15:17)
[2024-11-15] MEDS ORDERED: ALBU108A5 IN (15:17)
--- NOTE | 2024-11-15 15:18 | ED.PDOC ---
SOB-HPI HPI Comments THIS IS A 29 YEAR OLD FEMALE PRESENTING TO THE ED WITH CHIEF COMPLAINT OF COUGH. PATIENT REPORTS THAT SHE HAS BEEN EXPERIENCING A COUGH WITH ASSOCIATED EXERTIONAL WHEEZING SINCE October, SEEING NO IMPROVEMENT SINCE HER LAST VISIT TO [facility]. PATIENT NOTES SHE HAS HISTORY OF ASTHMA AND HAS NO INHALER AT THIS TIME. PATIENT DENIES ANY CHEST PAIN, FEVER, CHILLS, N/V, HEADACHE, OR HEMOPTYSIS.NO OTHER SYMPTOMS REPORTED AT THIS TIME. PT ALREADY FINISHED HER ANTIBIOTIC AND COUGH MEDICATION. 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 Family History Family History: Reviewed,noncontributory to illness Social History Smoker: Non-Smoker Alcohol: Denies ETOH Use Drugs: Denies Drug Use Lives In: Home Constitutional: denies: chills, diaphoresis, fatigue, fever, malaise, sweats, weakness, others EENTM: denies: blurred vision, double vision, ear bleeding, ear discharge, ear drainage, ear pain, ear ringing, eye pain, eye redness, hearing loss, mouth pain, mouth swelling, nasal discharge, nose bleeding, nose congestion, nose pain, photophobia, tearing, throat pain, throat swelling, voice changes, others Respiratory: reports: cough, wheezing; denies: hemoptysis, orthopnea, SOB at rest, shortness of breath, SOB with excertion, stridor, others Cardiovascular: denies: chest pain, dizzy spells, diaphoresis, Dyspnea on exertion, edema, irregular heart beat, left arm pain, lightheadedness, palpitations, PND, syncope, others Gastrointestinal: denies: abdomen distended, abdominal pain, blood streaked bowels, constipated, diarrhea, dysphagia, difficulty swallowing, hematemesis, melena, nausea, poor appetite, poor fluid intake, rectal bleeding, rectal pain, vomiting, others Genitourinary: denies: abnormal vagina bleeding, burning, dyspareunia, dysuria, flank pain, frequency, hematuria, incontinence, pain, , vagina discharge, urgency, others Neurological: denies: dizziness, fainting, headache, left sided numbness, left sided weakness, numbness, paresthesia, pre-existing deficit, right sided numbness, right sided weakness, seizure, speech problems, tingling, tremors, weakness, others Musculoskeletal: denies: back pain, gout, joint pain, joint swelling, muscle pain, muscle stiffness, neck pain, others Integumetry: denies: bruises, change in color, change in hair/nails, dryness, laceration, lesions, lumps, rash, wounds, others Allergic/Immunocompromised: denies: Difficulty Healing, Frequent Infections, Hives, Itching, others Hematologic/Lymphatic: denies: anemia, blood clots, easy bleeding, easy bruising, swollen glands, others Endocrine: denies: excessive hunger, excessive sweating, excessive thirst, excessive urination, flushing, intolerance to cold, intolerance to heat, unexplained weight gain, unexplained weight loss, others Psychiatric: denies: anxiety, bipolar disorder, depression, hopeless, panic disorder, schizophrenia, sleepless, suicidal, others All Other Systems: Reviewed and Negative Physical Exam General Appearance: No Apparent Distress, Normal HEENT: Normal ENT Inspection, PERRL/EOMI, Pharynx Normal, TMs Normal Neck: Full Range of Motion, Non-Tender, Normal, Normal Inspection Respiratory: Chest Non-Tender, Decreased Breath Sounds, Expiration, No Accessory Muscle Use, No Respiratory Distress, Wheezing Cardiovascular: No Edema, No JVD, No Murmur, No Gallop, Normal Peripheral Pulses, Regular Rate/Rhythm Breast Exam: Deferred Gastrointestinal: No Organomegaly, Non Tender, No Pulsatile Mass, Normal Bowel Sounds, Soft Genitalia: Deferred Pelvic: Deferred Rectal: Deferred Extremities: No calf tenderness, Normal capillary refill, Normal inspection, Normal range of motion, Non-tender, No pedal edema Musculoskeletal : Apperance: Normal Neurologic: Alert, medical front desk specialist II-XII nml as Tested, No Motor Deficits, Normal Affect, Normal Mood, No Sensory Deficits Cerebellar Function: Normal Reflexes: Normal Skin: Dry, Normal Color, Warm Peripheral Pulses: 2+ carotid (R), 2+ carotid (L) Lymphatic: No Adenopathy Was a procedure done? Was a procedure done?: No Differential Dx Differential Diagnosis: Anxiety, Asthma, Bronchitis, Pneumonia X-Ray, Labs, Meds, VS Vital Signs Date Time Temp Pulse Resp B/P (MAP) Pulse Ox O2 Delivery O2 Flow Rate FiO2 11/15/24 15:29 22 96 Room Air* 0 21 11/15/24 14:54 98.7 110 18 123/84 (97) 99 98.7 11/15/24 14:54 18 99 Room Air* 0 21 Current Medications Medications (Trade) Dose Ordered Sig/Bernadette Route Start Time Stop Time Status Last Admin Albuterol (Ventolin Medneb) 2.5 mg ONCE ONCE NEB 11/15/24 15:15 11/15/24 15:16 DC 11/15/24 15:29 Ipratropium [place] (Atrovent Medneb) 0.5 mg ONCE ONCE NEB 11/15/24 15:15 11/15/24 15:16 DC 11/15/24 15:29 PATIENT: KRISTIAN RIZOT: [id number]: [id number] : 1995 LOC: ER ROOM / BED: / AGE / SEX: 29 / F ADM STATUS: REG ER SERVICE [id number] ORDERING PHYSICIAN: ADRIANA OLIVEIRA PROCEDURE(s): CXR1 - CHEST XRAY 1 VIEW REASON: COUGH ORDER NUMBER(s): [id number], ACCESSION NUMBER(s): [id number] CHEST RADIOGRAPH Indication: COUGH Technique: Single frontal view of the chest was obtained COMPARISON: XY CHEST XRAY 1 VIEW on DOS: 11/02/24 FINDINGS: Lines and Tubes: None Lungs: Increased interstitial prominence Pleura: No effusion. No pneumothorax. Cardiomediastinal contours: Unremarkable Bones: Unremarkable IMPRESSION: Possible mild viral pneumonia ATED BY: KD ROSE MD DICTATED DATE/TIME: 11/15/241518 SIGNED BY: KD ROSE MD SIGNED DATE/TIME: 11/15/241518 CC: X-Ray, Labs, Meds, VS Comment COURSE: EXTERNAL MEDICAL RECORDS REVIEWED: [NONE] INDEPENDENT HISTORIANS: [NONE] SOCIAL DETERMINANTS OF HEALTH: [NONE] LABS ORDERED: NONE REVIEWED AND INTERPRETED RESULTS: CHEST XR IMAGING ORDERED: CHEST XR TREATMENTS ORDERED: DUONEB TREATMENT PROCEDURES PERFORMED: NONE CRITICAL CARE TIME: NONE I HAVE DISCUSSED THE PATIENT WITH THE ATTENDING PHYSICIAN DR. JACOB AND HE AGREES WITH THE PATIENT'S PLAN OF CARE AND DISPOSITION. BASED ON HISTORY OF PRESENT ILLNESS, AND PHYSICAL EXAM, PATIENT WILL BE DISCHARGED HOME. DISCUSSED PLAN FOR DISCHARGE HOME WITH RX MEDROL DOSE PACK, ALBUTEROL INHALER. MEDICATION WARNINGS GIVEN. SHARED DECISION MAKING: DISCUSSED WITH PATIENT THAT THEIR WORKUP WAS NORMAL. PATIENT INSTRUCTED TO FOLLOW UP WITH PRIMARY CARE PROVIDER IN 1-2 DAYS FOR RE- EVALUATION OF SYMPTOMS. PATIENT VERBALIZES UNDERSTANDING TO RETURN TO ED FOR NEW OR WORSENING SYMPTOMS OR IF FOLLOW UP WITH PCP CANNOT BE OBTAINED. PATIENT FEELS COMFORTABLE GOING HOME AT THIS TIME. ALL QUESTIONS ADDRESSED AT TIME OF DISCHARGE. Time of 1ST Reevaluation: 16:14 Reevaluation 1ST: Unchanged Patient Education/Counseling: Diagnosis, Treatment, Need For Follow Up Family Education/Counseling: Diagnosis, Treatment, No Family Present Medical Screening: No EMC Exist At This Time SEPSIS Sepsis Screen Date sepsis recognized/suspect: Nov 15, 2024 Time Sepsis recognized/suspect: 1434 Recent Procedure: No On Antibiotic Therapy: No Respiratory Rate >20: No Heart Rate >90: Yes Temp<36 C (96.8 F) or >38.3 C: No SBP <90 or MAP <65 mmHG: No New Acute Mental Status Change: No Is the patient on CPAP, BIPAP,: No Physician Orders Chest Xray 1 View (11/15/24 14:56) Vital Signs Date Time Temp Pulse Resp B/P (MAP) Pulse Ox O2 Delivery O2 Flow Rate FiO2 11/15/24 15:29 22 96 Room Air* 0 21 11/15/24 14:54 98.7 110 18 123/84 (97) 99 98.7 11/15/24 14:54 18 99 Room Air* 0 21 Medications Medications Dose Ordered Sig/Bernadette Route Start Time Stop Time Status Last Admin Dose Admin Albuterol 2.5 mg ONCE ONCE NEB 11/15/24 15:15 11/15/24 15:16 DC 11/15/24 15:29 Ipratropium [place] 0.5 mg ONCE ONCE NEB 11/15/24 15:15 11/15/24 15:16 DC 11/15/24 15:29 Departure 1 Departure Time of Disposition: 15:52 Impression: Primary Impression: Acute bronchitis with asthma Disposition: HOME / SELF CARE / HOMELESS Condition: Stable Additional Instructions: FOLLOW-UP WITH PCP IN 1 TO 2 DAYS. TAKE MEDICATIONS PRESCRIBED. RETURN TO ED FOR ANY NEW OR WORSENING SYMPTOMS. e-Prescriptions Methylprednisolone (Medrol Dosepak) 4 Mg Ras 4 MG PO UD, #21 TAB UAD Prov: ADRIANA OLIVEIRA 11/15/24 Albuterol Sulfate (Albuterol Sulfate Hfa) 108 Mcg/Act Aer 108 MCG IN TID, #120 AER Prov: ADRIANA OLIVEIRA 11/15/24 Discharged With: Self Critical Care Note Critical Care Time?: No Stability Stability form required: No Heart Score Heart Score: Heart Score Response (Comments) Value History N/A 0 EKG N/A 0 Age N/A 0 Risk Factors N/A 0 Troponin N/A 0 Total 0 I personally scribed for ADRIANA OLIVEIRA ([email or web address]) on 11/15/24 at 15:18. Electronically submitted by Adriel Her ([email or web address]). ADRIANA OLIVEIRA Nov 15, 2024 15:18
--- NOTE | 2024-11-15 15:21 | DVH ---
CHEST RADIOGRAPH Indication: COUGH Technique: Single frontal view of the chest was obtained COMPARISON: XY CHEST XRAY 1 VIEW on DOS: 11/02/24 FINDINGS: Lines and Tubes: None Lungs: Increased interstitial prominence Pleura: No effusion. No pneumothorax. Cardiomediastinal contours: Unremarkable Bones: Unremarkable IMPRESSION: Possible mild viral pneumonia
[2024-11-15] MEDS: ALBUTEROL SULF 2.5 MG/0.5ML(0.5%) NEB SOLN NEB ONE (15:29)
[2024-11-15] MEDS: IPRATROPIUM BROM 0.5 MG/2.5ML INH SOL NEB ONE (15:29)
[2024-11-15 15:56] VITALS: BP 130/85; PULSE 17; RESP 17; TEMP 98.2; O2SAT 98
== END 2024-11-15 16:01 | disposition home or self-care (01) ==
LOC: ER 14:13
DX: J20.9 Acute bronchitis, unspecified (principal); J45.909 Unspecified asthma, uncomplicated; E78.5 Hyperlipidemia, unspecified; Z90.49 Acquired absence of other specified parts of digestive tract
CPT/HCPCS: 71045; 94640

== ENCOUNTER 2024-12-01 21:29 | Emergency (ER) | payer OTHER ==
[~2024-12-01] VITALS: Ht 157.5 cm; Wt 74.9 kg
[~2024-12-01 21:29] MED LIST changes: +ALBU108A5 IN; +METH4PAK PO
[2024-12-01] MEDS: ALBUTEROL SULF 2.5 MG/0.5ML(0.5%) NEB SOLN NEB ONE (23:16)
[2024-12-01] MEDS: IPRATROPIUM BROM 0.5 MG/2.5ML INH SOL NEB ONE (23:16)
[2024-12-01] MEDS: levoFLOXacin 250 MG TAB PO ONE (23:50)
[2024-12-01] MEDS: HYDROcodone-ACET 10/325MG TAB PO ONE (23:51)
[2024-12-01] MEDS: TETANUS-DIPTH-ACEL PERTUSSIS 0.5ML SYR Tdap IM ONE (23:52)
[2024-12-02] MEDS: diphenhdrAMINE HCL 25 MG CAP PO ONE (00:44)
[2024-12-02 00:47] VITALS: BP 125/68; PULSE 87; RESP 17; TEMP 98.2; O2SAT 99
[2024-12-02] MEDS: FAMOTIDINE (10MG/ML) 2ML VL IV ONE (01:02)
[2024-12-02] MEDS: diphenhdrAMINE HCL 50 MG/1 ML VL IV ONE (01:02)
[2024-12-02] MEDS: ONDANSETRON HCL 4 MG/2 ML VIAL IV ONE (01:05)
[2024-12-02] MEDS: SODIUM CHLORIDE 0.9% 1,000 ML IV ONE (01:06)
[2024-12-02] MEDS: ONDANSETRON HCL 4 MG/2 ML VIAL ONE (01:07)
[2024-12-02] MEDS: METOCLOPRAMIDE HCL 5MG/ml INJ 2ml VIAL IV ONE (02:45)
[2024-12-02] MEDS ORDERED: METO-281 PO (03:04)
[2024-12-02] MEDS ORDERED: ZOFR4T PO (03:04)
[2024-12-02] MEDS ORDERED: LEVO750T40 PO (03:04)
--- NOTE | 2024-12-02 03:04 | ED.PDOC ---
History of Present Illness HPI Comments This patient is a pleasant 29-year-old female who arrives the ED today for complaints of headache concerns they are related to continued coughing events. Patient has had an upper respiratory concern for the past few weeks. Patient has taken multiple rounds of antibiotics with minimal effect. Patient states the coughing become so dramatic that is cause her to have significant headaches. Patient denies any fever. Vital signs were stable on arrival. Patient has a history of asthma that is usually well controlled. Chief Complaint: Headache Time Seen by MD: 22:32 Primary Care Provider: WEST Reviewed Notes: Nurses Notes Allergies: Coded Allergies: Avocado (Verified Allergy, Unknown, 07/09/24) Latex (Verified Allergy, Unknown, 07/09/24) Shellfish Allergy (Verified Allergy, Unknown, 04/06/24) [place] (Verified Allergy, Unknown, 07/09/24) Home Meds Active Scripts Methylprednisolone (Medrol Dosepak) 4 Mg Ras, 4 MG PO UD, #21 TAB UAD Prov:ADRIANA OLIVEIRA 11/15/24 Albuterol Sulfate (Albuterol Sulfate Hfa) 108 Mcg/Act Aer, 108 MCG IN TID, #120 AER Prov:ADRIANA OLIVEIRA 11/15/24 Ibuprofen Micronized (Ibuprofen) 600 Mg Tab, 600 MG PO TID, #30 TAB Prov:ADRIANA OLIVEIRA 11/02/24 Promethazine-Dm (Promethazine Dm 6.25-15 mg/5Ml) 1 Ursula Ursula, 5 ML PO TID, #160 ML Prov:ADRIANA OLIVEIRA 11/02/24 Azithromycin (Azithromycin) 500 Mg Tab, 1 TAB PO DAILY, #5 TAB Prov:ADRIANA OLIVEIRA 11/02/24 Prednisone (Prednisone) 20 Mg Tab, 20 MG PO DAILY for 5 Days, #5 TAB Prov:JEREL CHILDS 07/10/24 Nitrofurantoin Monohydrate Mac (Macrobid) 100 Mg Cap, 100 MG PO BID for 7 Days, #14 CAP Prov:JEREL CHILDS DO 07/10/24 Ibuprofen (Ibuprofen) 400 Mg Tab, 1 TAB PO Q6HPRN for 5 Days, #20 TAB Prov:LEVI JOSHI RESIDENT 04/10/24 Pantoprazole Sodium Sesquihydr (Pantoprazole Sodium) 40 Mg Tab, 40 MG PO DAILY@0600 for 30 Days, #30 TAB 1 Refill Prov:LEVI JOSHI RESIDENT 04/10/24 Information Source: Patient Mode of Arrival: Ambulatory Severity: Moderate Timing: Weeks Duration: Since onset Prehospital treatment: Treatment Past Medical History PAST MEDICAL HISTORY: Asthma, High Lipids Surgical 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 Family History Family History: Reviewed,noncontributory to illness Social History Smoker: Non-Smoker Alcohol: Denies ETOH Use Drugs: Denies Drug Use Lives In: Home Constitutional: denies: chills, diaphoresis, fatigue, fever, malaise, sweats, weakness, others EENTM: denies: blurred vision, double vision, ear bleeding, ear discharge, ear drainage, ear pain, ear ringing, eye pain, eye redness, hearing loss, mouth pain, mouth swelling, nasal discharge, nose bleeding, nose congestion, nose pain, photophobia, tearing, throat pain, throat swelling, voice changes, others Respiratory: reports: cough, shortness of breath; denies: hemoptysis, orthopnea, SOB at rest, SOB with excertion, stridor, wheezing, others Cardiovascular: denies: chest pain, dizzy spells, diaphoresis, Dyspnea on exertion, edema, irregular heart beat, left arm pain, lightheadedness, palpitations, PND, syncope, others Gastrointestinal: denies: abdomen distended, abdominal pain, blood streaked bowels, constipated, diarrhea, dysphagia, difficulty swallowing, hematemesis, melena, nausea, poor appetite, poor fluid intake, rectal bleeding, rectal pain, vomiting, others Genitourinary: denies: abnormal vagina bleeding, burning, dyspareunia, dysuria, flank pain, frequency, hematuria, incontinence, pain, , vagina discharge, urgency, others Neurological: reports: headache; denies: dizziness, fainting, left sided numbness, left sided weakness, numbness, paresthesia, pre-existing deficit, right sided numbness, right sided weakness, seizure, speech problems, tingling, tremors, weakness, others Musculoskeletal: denies: back pain, gout, joint pain, joint swelling, muscle pain, muscle stiffness, neck pain, others Integumetry: denies: bruises, change in color, change in hair/nails, dryness, laceration, lesions, lumps, rash, wounds, others Allergic/Immunocompromised: denies: Difficulty Healing, Frequent Infections, Hives, Itching, others Hematologic/Lymphatic: denies: anemia, blood clots, easy bleeding, easy bruising, swollen glands, others Endocrine: denies: excessive hunger, excessive sweating, excessive thirst, excessive urination, flushing, intolerance to cold, intolerance to heat, unexplained weight gain, unexplained weight loss, others Psychiatric: denies: anxiety, bipolar disorder, depression, hopeless, panic disorder, schizophrenia, sleepless, suicidal, others Physical Exam General Appearance: Moderate Distress (Distress due to headache and coughing concerns.), Normal HEENT: Normal ENT Inspection, Pharynx Normal, TMs Normal Neck: Full Range of Motion, Non-Tender, Normal, Normal Inspection Respiratory: Other (Very mild rhonchi appreciated in right middle lobe.) Cardiovascular: No Edema, No JVD, No Murmur, No Gallop, Normal Peripheral Pulses, Regular Rate/Rhythm Breast Exam: Deferred Gastrointestinal: No Organomegaly, Non Tender, No Pulsatile Mass, Normal Bowel Sounds, Soft Genitalia: Deferred Pelvic: Deferred Rectal: Deferred Extremities: No calf tenderness, Normal capillary refill, Normal inspection, Normal range of motion, Non-tender, No pedal edema Neurologic: Alert, No Motor Deficits, Normal Affect, Normal Mood, No Sensory Deficits Cerebellar Function: Normal Reflexes: Normal Skin: Dry, Normal Color, Warm Lymphatic: No Adenopathy Was a procedure done? Was a procedure done?: No Differential Dx Considerations may include: Viral upper respiratory illness, bacterial upper respiratory illness, asthma X-Ray, Labs, Meds, VS Vital Signs Date Time Temp Pulse Resp B/P (MAP) Pulse Ox O2 Delivery O2 Flow Rate FiO2 12/02/24 00:47 98.2 87 17 125/68 (87) 99 98.2 12/02/24 00:02 98.9 78 18 123/79 (94) 99 98.9 12/02/24 00:02 78 18 99 Room Air 12/01/24 23:16 20 99 Room Air* 0 21 12/01/24 21:30 98.7 82 16 137/74 98 98.7 Current Medications Medications (Trade) Dose Ordered Sig/Bernadette Route Start Time Stop Time Status Last Admin Albuterol (Ventolin Medneb) 5 mg ONCE ONCE NEB 12/01/24 22:45 12/01/24 22:46 DC 12/01/24 23:16 Ipratropium [place] (Atrovent Medneb) 0.5 mg ONCE ONCE NEB 12/01/24 22:45 12/01/24 22:46 DC 12/01/24 23:16 Dexamethasone Sodium Phosphate (Decadron Injection) 10 mg ONCE ONCE IM 12/01/24 22:45 12/01/24 22:46 DC 12/01/24 23:51 Levofloxacin (Levaquin Tablet) 750 mg ONCE ONCE PO 12/01/24 22:45 12/01/24 22:46 DC 12/01/24 23:50 Acetaminophen/ Hydrocodone Bitart ([place] 10/325MG Tab) 1 tab ONCE ONCE PO 12/01/24 22:45 12/01/24 22:46 DC 12/01/24 23:51 Diphtheria/ Tetanus/Acell Pertussis (Boostrix T-Dap) 0.5 ml ONCE ONCE IM 12/01/24 23:45 12/01/24 23:46 DC 12/01/24 23:52 Diphenhydramine HCl (Benadryl Capsule) 25 mg ONCE ONCE PO 12/02/24 00:30 12/02/24 00:31 DC 12/02/24 00:44 Sodium Chloride 1,000 ml @ 1,000 mls/hr Q1H ONCE IV 12/02/24 01:00 12/02/24 01:59 DC 12/02/24 01:06 Diphenhydramine HCl (Benadryl Injection) 25 mg ONCE ONCE IV 12/02/24 01:00 12/02/24 01:01 DC 12/02/24 01:02 Famotidine (Pepcid Injection) 20 mg ONCE ONCE IV 12/02/24 01:00 12/02/24 01:01 DC 12/02/24 01:02 Ondansetron HCl (Zofran) 4 mg ONCE ONCE IV 12/02/24 01:15 12/02/24 01:16 DC 12/02/24 01:05 Metoclopramide HCl (Reglan Injection) 10 mg ONCE ONCE IV 12/02/24 01:30 12/02/24 01:31 DC 12/02/24 02:45 X-Ray, Labs, Meds, VS Comment Spent extensive time discussing with the patient my concerns and how to address her concerns. Patient seemed to not be responding to prior antibiotics and therefore, I decided to start a series with Levaquin to address multiple bacterial components. Subsequent to the patient receiving Levaquin, she seemed to develop a rash on her chest. Benadryl was utilize his subsequent to the Benadryl, patient is started intractable nausea and vomiting. After an hour, we were able to stabilize the patient. Advised the patient should utilize the antibiotics as she has failed on amoxicillin and azithromycin. Advise utilizing Benadryl as needed and albuterol as needed for shortness a breath concerns. Time of 1ST Reevaluation: 03:00 Reevaluation 1ST: Improved Consultation: PCP Patient Education/Counseling: Diagnosis, Treatment Family Education/Counseling: Diagnosis, Treatment SEPSIS Sepsis Screen Date sepsis recognized/suspect: Dec 01, 2024 Time Sepsis recognized/suspect: 2129 Recent Procedure: No On Antibiotic Therapy: No Respiratory Rate >20: No Heart Rate >90: No Temp<36 C (96.8 F) or >38.3 C: No SBP <90 or MAP <65 mmHG: No New Acute Mental Status Change: No Is the patient on CPAP, BIPAP,: No Physician Orders Saline Lock (12/02/24 00:57) Vital Signs Date Time Temp Pulse Resp B/P (MAP) Pulse Ox O2 Delivery O2 Flow Rate FiO2 12/02/24 00:47 98.2 87 17 125/68 (87) 99 98.2 12/02/24 00:02 98.9 78 18 123/79 (94) 99 98.9 12/02/24 00:02 78 18 99 Room Air 12/01/24 23:16 20 99 Room Air* 0 21 12/01/24 21:30 98.7 82 16 137/74 98 98.7 Medications Medications Dose Ordered Sig/Bernadette Route Start Time Stop Time Status Last Admin Dose Admin Acetaminophen/ Hydrocodone Bitart 1 tab ONCE ONCE PO 12/01/24 22:45 12/01/24 22:46 DC 12/01/24 23:51 Albuterol 5 mg ONCE ONCE NEB 12/01/24 22:45 12/01/24 22:46 DC 12/01/24 23:16 Dexamethasone Sodium Phosphate 10 mg ONCE ONCE IM 12/01/24 22:45 12/01/24 22:46 DC 12/01/24 23:51 Diphenhydramine HCl 25 mg ONCE ONCE IV 12/02/24 01:00 12/02/24 01:01 DC 12/02/24 01:02 Diphenhydramine HCl 25 mg ONCE ONCE PO 12/02/24 00:30 12/02/24 00:31 DC 12/02/24 00:44 Diphtheria/ Tetanus/Acell Pertussis 0.5 ml ONCE ONCE IM 12/01/24 23:45 12/01/24 23:46 DC 12/01/24 23:52 Famotidine 20 mg ONCE ONCE IV 12/02/24 01:00 12/02/24 01:01 DC 12/02/24 01:02 Ipratropium [place] 0.5 mg ONCE ONCE NEB 12/01/24 22:45 12/01/24 22:46 DC 12/01/24 23:16 Levofloxacin 750 mg ONCE ONCE PO 12/01/24 22:45 12/01/24 22:46 DC 12/01/24 23:50 Metoclopramide HCl 10 mg ONCE ONCE IV 12/02/24 01:30 12/02/24 01:31 [place] 12/02/24 02:45 Ondansetron HCl 4 mg ONCE ONCE IV 12/02/24 01:15 12/02/24 01:16 DC 12/02/24 01:05 Sodium Chloride 1,000 ml @ 1,000 mls/hr Q1H ONCE IV 12/02/24 01:00 12/02/24 01:59 TX 12/02/24 01:06 Departure 1 Departure Time of Disposition: 03:01 Impression: Primary Impression: Acute bronchitis with asthma Disposition: 01 HOME / SELF CARE / HOMELESS Condition: Stable Additional Instructions: Advise utilizing antibiotics as directed until completion as well as additional medication as needed. Patient has a home nebulizer available for albuterol dispensing. e-Prescriptions Metoclopramide Hcl (Reglan) 10 Mg Tab 10 MG PO Q6HP PRN, #15 TAB Prov: CAMERON IVY PAC 12/02/24 Ondansetron Odt 4MG Tab (ZOFRAN PO) 4 Mg Tb 4 MG PO Q6HP PRN, #20 TAB ODT TAB-DISSOLVE IN MOUTH, THEN SWALLOW Prov: CAMERON IVY PAC 12/02/24 Levofloxacin Hemihydrate (LEVOFLOXACIN) 750 Mg Tab 1 TAB PO DAILY, #7 TAB Prov: CAMERON IVY PAC 12/02/24 Discharged With: Self, Friend Critical Care Note Critical Care Time?: No Stability Stability form required: No Heart Score Heart Score: Heart Score Response (Comments) Value History N/A 0 EKG N/A 0 Age N/A 0 Risk Factors N/A 0 Troponin N/A 0 Total 0 CAMERON IVY PAC Dec 02, 2024 03:04
== END 2024-12-02 03:22 | disposition home or self-care (01) ==
LOC: ER 21:29 → EEVIPCON 21:29 → ER 12-02 03:22
DX: J20.9 Acute bronchitis, unspecified (principal); J45.909 Unspecified asthma, uncomplicated; E78.5 Hyperlipidemia, unspecified; Z90.49 Acquired absence of other specified parts of digestive tract; Z79.899 Other long term (current) drug therapy; Z79.52 Long term (current) use of systemic steroids; Z79.1 Long term (current) use of non-steroidal anti-inflammatories (NSAID)
CPT/HCPCS: 90471; 90715; 94640; 96361; 96372; 96374; 96375; 99284; J1100; J1200; J2405; J2765; J3490; J7030

== ENCOUNTER 2025-02-22 07:04 | Emergency (ER) | payer OTHER ==
[~2025-02-22] VITALS: Ht 157.5 cm; Wt 72.8 kg
[~2025-02-22 07:04] MED LIST changes: +LEVO750T40 PO; +METO-281 PO; +ZOFR4T PO
--- NOTE | 2025-02-22 07:37 | ED.PDOC ---
Eye-HPI HPI Comments A 29 YEAR OLD FEMALE PRESENTS TO THE ED WITH COMPLAINT OF SORE THROAT AND COUGH. PATIENT STATES SHE HAS BEEN EXPERIENCING A SORE THROAT, BODY ACHES, OCCASIONAL FEVER, AND A COUGH FOR THE PAST 5 DAYS. PATIENT DENIES SHORTNESS OF BREATH, CHEST PAIN, ABDOMINAL PAIN, NAUSEA, VOMITING, HEADACHE, OR OTHER COMPLAINTS. NO OTHER SYMPTOMS OR MODIFYING FACTORS AT THIS TIME. PATIENT IS ALERT, ORIENTED X 4, AND HAS STEADY GAIT. Chief Complaint: Sore Throat Time Seen by MD: 07:18 Primary Care Provider: [facility] Reviewed Notes: Nurses Notes, Medications, Allergies Allergies: Coded Allergies: Avocado (Verified Allergy, Unknown, 07/09/24) Latex (Verified Allergy, Unknown, 07/09/24) Shellfish Allergy (Verified Allergy, Unknown, 04/06/24) Dawson (Verified Allergy, Unknown, 07/09/24) Home Meds Active Scripts Lidocaine HCl (Mouth-Throat) (Lidocaine HCl Viscous) 2 % Ursula, 10 ML PO TID, #100 ML Prov:ADRIANA OLIVEIRA 02/22/25 Azithromycin (Azithromycin) 500 Mg Tab, 1 TAB PO DAILY, #5 TAB Prov:ADRAINA OLIVEIRA 02/22/25 Metoclopramide Hcl (Reglan) 10 Mg Tab, 10 MG PO Q6HP PRN, #15 TAB Prov:CAMERON IVY 12/02/24 Ondansetron Odt 4MG Tab (ZOFRAN PO) 4 Mg Tb, 4 MG PO Q6HP PRN, #20 TAB ODT TAB-DISSOLVE IN MOUTH, THEN SWALLOW Prov:CAMERON IVY 12/02/24 Levofloxacin Hemihydrate (LEVOFLOXACIN) 750 Mg Tab, 1 TAB PO DAILY, #7 TAB Prov:CAMERON IVY 12/02/24 Methylprednisolone (Medrol Dosepak) 4 Mg Ras, 4 MG PO UD, #21 TAB UAD Prov:ADRIANA OLIVEIRA 11/15/24 Albuterol Sulfate (Albuterol Sulfate Hfa) 108 Mcg/Act Aer, 108 MCG IN TID, #120 AER Prov:ADRIANA OLIVEIRA 11/15/24 Ibuprofen Micronized (Ibuprofen) 600 Mg Tab, 600 MG PO TID, #30 TAB Prov:ADRIANA OLIVEIRA 11/02/24 Promethazine-Dm (Promethazine Dm 6.25-15 mg/5Ml) 1 Ursula Ursula, 5 ML PO TID, #160 ML Prov:ADRIANA OLIVEIRA 11/02/24 Azithromycin (Azithromycin) 500 Mg Tab, 1 TAB PO DAILY, #5 TAB Prov:ADRIANA OLIVEIRA 11/02/24 Prednisone (Prednisone) 20 Mg Tab, 20 MG PO DAILY for 5 Days, #5 TAB Prov:JEREL CHILDS DO 07/10/24 Nitrofurantoin Monohydrate Mac (Macrobid) 100 Mg Cap, 100 MG PO BID for 7 Days, #14 CAP Prov:JEREL CHILDS DO 07/10/24 Ibuprofen (Ibuprofen) 400 Mg Tab, 1 TAB PO Q6HPRN for 5 Days, #20 TAB Prov:LEVI JOSHI RESIDENT 04/10/24 Pantoprazole Sodium Sesquihydr (Pantoprazole Sodium) 40 Mg Tab, 40 MG PO DAILY@0600 for 30 Days, #30 TAB 1 Refill Prov:LEVI JOSHI 04/10/24 Information Source: Patient Mode of Arrival: Ambulatory Timing: Days Duration: Since onset, Days Prehospital treatment: None Quality: Pain, Red Lids: Normal Conjunctiva: Normal Cornea: Normal Pupils: Normal EOM: Normal Fundus: Normal Slit lamp exam: Normal Anterior chamber: Normal Mouth Location: Pharynx Mouth: Normal ENT Ear Exam: Normal, Normal, Normal Nose: Normal Sinuses: Normal Oropharynx: Tonsillar hypertrophy, Red, Exudate Onset: Spontaneous Throat Exposed to: None History of: None Last Tetanus: UTD Modifying factors: Nothing Associated signs and symptoms: Fever, Sore Throat Past Medical History PAST MEDICAL HISTORY: Asthma, High Lipids Surgical History: Appendectomy 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 READER 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: 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 all CARD READER Hx Family History Family History: Reviewed,noncontributory to illness Social History Smoker: Non-Smoker Alcohol: Denies ETOH Use Drugs: Denies Drug Use Lives In: Home Constitutional: reports: fever; denies: chills, diaphoresis, fatigue, malaise, sweats, weakness, others EENTM: reports: throat pain, throat swelling; denies: blurred vision, double vision, ear bleeding, ear discharge, ear drainage, ear pain, ear ringing, eye pain, eye redness, hearing loss, mouth pain, mouth swelling, nasal discharge, nose bleeding, nose congestion, nose pain, photophobia, tearing, voice changes, others Respiratory: reports: cough; denies: hemoptysis, orthopnea, SOB at rest, shortness of breath, SOB with excertion, stridor, wheezing, others Cardiovascular: denies: chest pain, dizzy spells, diaphoresis, Dyspnea on exertion, edema, irregular heart beat, left arm pain, lightheadedness, palpitations, PND, syncope, others Gastrointestinal: denies: abdomen distended, abdominal pain, blood streaked bowels, constipated, diarrhea, dysphagia, difficulty swallowing, hematemesis, melena, nausea, poor appetite, poor fluid intake, rectal bleeding, rectal pain, vomiting, others Genitourinary: denies: abnormal vagina bleeding, burning, dyspareunia, dysuria, flank pain, frequency, hematuria, incontinence, pain, , vagina discharge, urgency, others Neurological: denies: dizziness, fainting, headache, left sided numbness, left sided weakness, numbness, paresthesia, pre-existing deficit, right sided numbness, right sided weakness, seizure, speech problems, tingling, tremors, wea kness, others Musculoskeletal: reports: muscle pain; denies: back pain, gout, joint pain, joint swelling, muscle stiffness, neck pain, others Integumetry: denies: bruises, change in color, change in hair/nails, dryness, laceration, lesions, lumps, rash, wounds, others Allergic/Immunocompromised: denies: Difficulty Healing, Frequent Infections, Hives, Itching, others Hematologic/Lymphatic: denies: anemia, blood clots, easy bleeding, easy bruising, swollen glands, others Endocrine: denies: excessive hunger, excessive sweating, excessive thirst, excessive urination, flushing, intolerance to cold, intolerance to heat, unexplained weight gain, unexplained weight loss, others Psychiatric: denies: anxiety, bipolar disorder, depression, hopeless, panic disorder, schizophrenia, sleepless, suicidal, others All Other Systems: Reviewed and Negative Physical Exam General Appearance: No Apparent Distress, Normal HEENT: PERRL/EOMI, Pharyngeal Erythema (TONSILLAR SWELLING WITH EXUDATES. ), TMs Normal Neck: Full Range of Motion, Non-Tender, Normal, Normal Inspection Respiratory: Chest Non-Tender, Lungs Clear, No Accessory Muscle Use, No Respiratory Distress, Normal Breath Sounds Cardiovascular: No Edema, No JVD, No Murmur, No Gallop, Normal Peripheral Pulses, Regular Rate/Rhythm Breast Exam: Deferred Gastrointestinal: No Organomegaly, Non Tender, No Pulsatile Mass, Normal Bowel Sounds, Soft Genitalia: Deferred Pelvic: Deferred Rectal: Deferred Extremities: No calf tenderness, Normal capillary refill, Normal inspection, Normal range of motion, Non-tender, No pedal edema Musculoskeletal : Apperance: Normal Neurologic: Alert, work measurement engineer II-XII nml as Tested, No Motor Deficits, Normal Affect, Normal Mood, No Sensory Deficits Cerebellar Function: Normal Reflexes: Normal Skin: Dry, Normal Color, Warm Peripheral Pulses: 2+ carotid (R), 2+ carotid (L), 2+ dorsalis pedis (R), 2+ dorsalis pedis (L) Lymphatic: No Adenopathy Was a procedure done? Was a procedure done?: No EENT DIFF Eye: N/A Ear: Otitis Media, Pharyngitis, Sinusitis Nose: N/A Mouth: N/A Sore Throat: Pharyngitis, Streptococcal, Viral Pharyngitis, URI X-Ray, Labs, Meds, VS Vital Signs Date Time Temp Pulse Resp B/P (MAP) Pulse Ox O2 Delivery O2 Flow Rate FiO2 02/22/25 07:06 98.6 90 20 111/66 98 98.6 Current Medications Medications (Trade) Dose Ordered Sig/Bernadette Route Start Time Stop Time Status Last Admin Ceftriaxone Sodium (Rocephin) 1,000 mg ONCE ONCE IM 02/22/25 07:45 02/22/25 07:46 DC 02/22/25 07:47 X-Ray, Labs, Meds, VS Comment EXTERNAL MEDICAL RECORDS REVIEWED: [NONE] INDEPENDENT HISTORIANS: [NONE] SOCIAL DETERMINANTS OF HEALTH: [NONE] LABS ORDERED: NONE REVIEWED AND INTERPRETED RESULTS: NONE IMAGING ORDERED: XR CHEST: [INTERPRETED BY ME. NO ACUTE FINDINGS. NO PNEUMONIA. NO CONSOLIDATIONS. NO INFILTRATES. PENDING RADIOLOGIST REPORT. ] TREATMENTS ORDERED: ROCEPHIN 1 G IM PROCEDURES PERFORMED: NONE CRITICAL CARE TIME: NONE I HAVE DISCUSSED THE PATIENT WITH THE ATTENDING PHYSICIAN DR. FISH AND HE AGREES WITH THE PATIENT'S PLAN OF CARE AND DISPOSITION. BASED ON HISTORY OF PRESENT ILLNESS, AND PHYSICAL EXAM, PATIENT WILL BE DISCHARGED HOME. DISCUSSED PLAN FOR DISCHARGE HOME WITH RX [AZITHROMYCIN AND 2% VISCOUS LIDOCAINE]. MEDICATION WARNINGS GIVEN. SHARED DECISION MAKING: PATIENT INSTRUCTED TO FOLLOW UP WITH PRIMARY CARE PROVIDER IN 1-2 DAYS FOR RE-EVALUATION OF SYMPTOMS. PATIENT VERBALIZES UNDERSTANDING TO RETURN TO ED FOR NEW OR WORSENING SYMPTOMS OR IF FOLLOW UP WITH PCP CANNOT BE OBTAINED. PATIENT FEELS COMFORTABLE GOING HOME AT THIS TIME. ALL QUESTIONS ADDRESSED AT TIME OF DISCHARGE. Images Reviewed?: Images reviewed and evaluated by me Time of 1ST Reevaluation: 08:00 Reevaluation 1ST: Improved Patient Education/Counseling: Diagnosis, Treatment, Need For Follow Up Family Education/Counseling: Diagnosis, Treatment, Need For Follow Up Medical Screening: No EMC Exist At This Time SEPSIS Sepsis Screen Date sepsis recognized/suspect: Feb 22, 2025 Time Sepsis recognized/suspect: 707 Recent Procedure: No On Antibiotic Therapy: No Respiratory Rate >20: No Heart Rate >90: No Temp<36 C (96.8 F) or >38.3 C: No SBP <90 or MAP <65 mmHG: No New Acute Mental Status Change: No Is the patient on CPAP, BIPAP,: No Physician Orders Chest Xray 1 View (02/22/25 07:32) Vital Signs Date Time Temp Pulse Resp B/P (MAP) Pulse Ox O2 Delivery O2 Flow Rate FiO2 02/22/25 07:06 98.6 90 20 111/66 98 98.6 Medications Medications Dose Ordered Sig/Bernadette Route Start Time Stop Time Status Last Admin Dose Admin Ceftriaxone Sodium 1,000 mg ONCE ONCE IM 02/22/25 07:45 02/22/25 07:46 DC 02/22/25 07:47 Lidocaine HCl 20 ml STK-MED ONCE .ROUTE 02/22/25 07:42 02/22/25 07:37 DC 02/22/25 07:47 Departure 1 Departure Time of Disposition: 08:00 Impression: Primary Impression: Exudative tonsillitis Disposition: 01 HOME / SELF CARE / HOMELESS Condition: Stable Additional Instructions: FOLLOW-UP WITH PCP IN 1 TO 2 DAYS. TAKE MEDICATIONS PRESCRIBED. RETURN TO ED FOR ANY NEW OR WORSENING SYMPTOMS. e-Prescriptions Lidocaine HCl (Mouth-Throat) (Lidocaine HCl Viscous) 2 % Ursula 10 ML PO TID, #100 ML Prov: ADRIANA OLIVEIRA 02/22/25 Azithromycin (Azithromycin) 500 Mg Tab 1 TAB PO DAILY, #5 TAB Prov: ADRIANA OLIVEIRA 02/22/25 Discharged With: Self Critical Care Note Critical Care Time?: No Stability Stability form required: No I personally scribed for ADRIANA OLIVEIRA ([email or web address]) on 02/22/25 at 07:37. Electronically submitted by Derek Whatley ([employer]). I personally scribed for ADRIANA OLIVEIRA ([email or web address]) on 02/22/25 at 07:58. Electronically submitted by Derek Whatley ([employer]). ADRIANA OLIVEIRA Feb 22, 2025 07:37
[2025-02-22] MEDS: LIDOCAINE 1% HCL (LOCAL ANESTH.) INJ 20ML MDV ONE (07:47)
[2025-02-22] MEDS: cefTRIAXone SOD 1,000 MG VL IM ONE (07:47)
[2025-02-22] MEDS ORDERED: LIDO2SOL26 PO (07:59)
[2025-02-22 08:04] VITALS: BP 111/66; PULSE 90; RESP 20; TEMP 98.6; O2SAT 98
--- NOTE | 2025-02-22 08:16 | DVH ---
CHEST RADIOGRAPH Indication: COUGH Technique: Single frontal view of the chest was obtained Comparison: XY CHEST XRAY 1 VIEW on DOS: 11/15/24, XY CHEST XRAY 1 VIEW on DOS: 11/02/24, XY CHEST TWO V IEWS ROUTINE on DOS: 09/10/24, XY CHEST TWO VIEWS ROUTINE on DOS: 04/06/24, XR CHEST 2 VIEWS on DOS: FINDINGS: Lines and Tubes: None Lungs: No focal consolidation. Pleura: No effusion. No pneumothorax. Cardiomediastinal contours: Unremarkable Bones: No acute osseous abnormality. IMPRESSION: No acute cardiopulmonary disease.
== END 2025-02-22 08:06 | disposition home or self-care (01) ==
LOC: ER 07:04
DX: J03.90 Acute tonsillitis, unspecified (principal); J45.909 Unspecified asthma, uncomplicated; Z90.49 Acquired absence of other specified parts of digestive tract; Z79.899 Other long term (current) drug therapy
CPT/HCPCS: 71045; 96372; 99283; J0696; J2003